=== PATIENT | male | born 1960 | race American Indian/Alaskan Native ===

== ENCOUNTER 2016-10-20 16:28 | Inpatient (IN) | payer BC ==
[~2016-10-20] VITALS: Ht 165.1 cm; Wt 79.7 kg
[2016-10-20 19:00] VITALS: BP 144/90; PULSE 60; RESP 20
[2016-10-20] MEDS ORDERED: HYDROCODONE/APAP (5/325) TAB PO PRN (19:30)
[2016-10-20] MEDS ORDERED: LEVOFLOXACIN 500MG/D5W (PMX) 100 ML IVPB SCH (19:30)
[2016-10-20] MEDS ORDERED: DIPHENHYDRAMINE 25 MG CAP PO PRN (19:30)
[2016-10-20] MEDS ORDERED: VANCOMYCIN IV PER PHARMACY XX SCH (19:30)
[2016-10-20 19:31] VITALS: BP 146/84; RESP 20
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
[2016-10-20 19:58] VITALS: Ht 165.1 cm; Wt 79.7 kg
[2016-10-20] MEDS ORDERED: CLOP75TA27 PO (20:02)
[2016-10-20] MEDS ORDERED: ATOR10TA65 PO (20:02)
[2016-10-20] MEDS ORDERED: HALO10TA PO (20:02)
[2016-10-20] MEDS ORDERED: CARV3.1260 PO (20:02)
[2016-10-20] MEDS ORDERED: ASPI-664 PO (20:02)
[2016-10-20] MEDS ORDERED: NITR0.4T6 SL (20:02)
[2016-10-20] MEDS ORDERED: [UNRECOGNIZED DRUG - CODE] PO (20:02)
[2016-10-20] MEDS ORDERED: ENAL5TAB PO (20:02)
--- NOTE | 2016-10-20 21:34 | RADRPT ---
PROCEDURE: US right lower extremity veins. CLINICAL INDICATION: Right leg pain and swelling. TECHNIQUE: Multiple longitudinal and transverse images of the right lower extremity veins were obt ained with bautista scale and color Doppler imaging. The common femoral vein, femoral vein, and poplitea l vein were evaluated. 2D grayscale measurements with compression sonography, pulsed Doppler, color Doppler, and pulsed Doppler with augmentation. COMPARISON: No prior studies are available for comparison. FINDINGS: The right common femoral, femoral and popliteal veins are normally compressible throughout. Color f low demonstrates normal filling of the vessels. Normal waveforms are visualized and there is normal response to augmentation. IMPRESSION: 1. No evidence of deep vein thrombosis involving the right lower extremity. RPTAT: QQ .Stephane Espinoza MD, MD Date Time Electronically viewed and signed by .Stephane Espinoza MD, on 10/20/2016 21:33 .R/
[2016-10-20] MEDS ORDERED: VANCOMYCIN 1.5 GM in SOD CHLORIDE 0.9% 250 ML IVPB SCH (22:00)
[2016-10-20] MEDS ORDERED: HALOPERIDOL 15 MG PO SCH (22:00)
[2016-10-20] MEDS: TRIHEXYPHENIDYL 5 MG TAB PO SCH (22:00)
[2016-10-20] MEDS ORDERED: NITROGLYCERIN (SL) 0.4 MG TAB SL PRN (22:00)
[2016-10-20] MEDS: HYDROCORTISONE 1% 28 GM CR TOP SCH (22:16)
[2016-10-20] MEDS: DOCUSATE SODIUM 100 MG CAP PO SCH (22:16)
[2016-10-20] MEDS: HALOPERIDOL 10 MG PO SCH (23:25)
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
[2016-10-21 05:53] LABS: ADD SCAN DIFF NO
[2016-10-21 05:56] LABS: ABNORMAL IP MESSAGE 1; HEMATOCRIT 42.5 % (42.0-52.0); HEMOGLOBIN 12.1 g/dl (14.0-18.0); MEAN CORPUSCULAR HEMOGLOBIN 19.3 pg (29.0-33.0); MEAN CORPUSCULAR HGB CONC 28.5 g/dl (32.0-37.0); MEAN CORPUSCULAR VOLUME 67.7 fl (82.0-101.0); MEAN PLATELET VOLUME 10.5 fl (7.4-10.4); PLATELET COUNT 185 10^3/UL (140-415); RED BLOOD COUNT 6.28 10^6/ul (4.70-6.10); RED CELL DISTRIBUTION WIDTH 17.8 % (11.5-14.5); WHITE BLOOD COUNT 9.5 10^3/ul (4.8-10.8)
[2016-10-21 06:06] LABS: INR 0.97; PROTIME 12.9 Sec (12.2-14.2)
[2016-10-21 06:10] LABS: ALBUMIN 3.2 g/dl (3.3-4.9); CHLORIDE 96 mmol/L (97-110)
[2016-10-21 06:11] LABS: POTASSIUM 4.1 mmol/L (3.5-5.1); SODIUM 137 mmol/L (135-144)
[2016-10-21 06:12] LABS: IRON 117 ug/dl (35-150)
[2016-10-21 06:13] LABS: ALKALINE PHOSPHATASE 59 IU/L (42-121); ANION GAP 10 (8-16); ASPARTATE AMINO TRANSFERASE 42 IU/L (15-46); BILIRUBIN,INDIRECT 0.3 mg/dl (0-1.1); BILIRUBIN,TOTAL 0.3 mg/dl (0.2-1.3); BLOOD UREA NITROGEN 4 mg/dl (7-20); CALCIUM 8.1 mg/dl (8.4-10.2); CARBON DIOXIDE 35 mmol/L (21-31); CHOLESTEROL 133 mg/dl (100-200); GLUCOSE 83 mg/dl (70-220); TOTAL PROTEIN 5.9 g/dl (6.1-8.1); TRIGLYCERIDES 81 mg/dl (0-149)
[2016-10-21 06:14] LABS: ALANINE AMINOTRANSFERASE 51 IU/L (13-69); CHOL/HDL RATIO 2.3 RATIO; HDL CHOLESTEROL 57 mg/dl (28-71); MAGNESIUM 1.8 mg/dl (1.7-2.5)
[2016-10-21 06:19] LABS: PARTIAL THROMBOPLASTIN TIME 28.6 Sec (25.0-35.0)
[2016-10-21 06:21] LABS: TOTAL IRON BINDING CAPACITY 287 ug/dl (241-421)
[2016-10-21 07:12] LABS: ADD UMIC NO; URINE BILIRUBIN (Dip) NEGATIVE (NEGATIVE); URINE BLOOD (Dip) NEGATIVE (NEGATIVE); URINE COLOR LT. YELLOW (YELLOW); URINE GLUCOSE (Dip) NEGATIVE (NEGATIVE); URINE KETONES (Dip) NEGATIVE (NEGATIVE); URINE LEUKOCYTE ESTERASE (Dip) NEGATIVE (NEGATIVE); URINE NITRITE (Dip) NEGATIVE (NEGATIVE); URINE TOTAL PROTEIN (Dip) NEGATIVE (NEGATIVE); URINE UROBILINOGEN (Dip) 0.2 E.U./dL (0.1-1.0)
[2016-10-21 07:54] VITALS: BP 122/80; RESP 18
[2016-10-21] MEDS ORDERED: FLUOCINONIDE 0.05%/EMOLL 15 GM CR TOP SCH ×2 (09:00)
[2016-10-21] MEDS: TRIHEXYPHENIDYL 5 MG TAB PO SCH ×2 (09:00→22:09)
--- NOTE | 2016-10-21 09:25 | RADRPT ---
PROCEDURE: XR right ankle. CLINICAL INDICATION: Ankle pain TECHNIQUE: Three views are available for review. COMPARISON: None available FINDINGS: There are old healed distal third tibial and fibular fractures There is a small posterior calcaneal spur. The osseous structures are otherwise normal mineralization, architecture and alignment. No fracture or osseous lesion is identified. The joints are unremarkable. The soft tissues are unremarkable. N o air is identified in the soft tissues. IMPRESSION: Small posterior calcaneal spur. No acute osseous abnormalities identified RPTAT: HGDB .Diego Ho MD, Date Time Electronically viewed and signed by .Diego Ho MD, on 10/21/2016 09:25 .B/
--- NOTE | 2016-10-21 09:28 | RADRPT ---
PROCEDURE: XR right foot. CLINICAL INDICATION: Foot pain /edema TECHNIQUE: Three views are available for review. COMPARISON: None available FINDINGS: There is a small posterior calcaneal spur. The osseous structures are otherwise normal in mineraliza tion, architecture and alignment. No fracture or osseous lesion this demonstrated. The joints are u nremarkable. The soft tissues are unremarkable. No air is identified in the soft tissues. IMPRESSION: Small posterior calcaneal spur. No acute osseous abnormalities identified RPTAT: HGDB .Diego Ho MD, Date Time Electronically viewed and signed by .Diego Ho MD, on 10/21/2016 09:27 .B/
[2016-10-21] MEDS: ENALAPRIL 5 MG TAB PO SCH (09:44)
[2016-10-21] MEDS: FAMOTIDINE 20 MG TAB PO SCH ×2 (09:44→21:53)
[2016-10-21] MEDS: CLOPIDOGREL 75 MG TAB PO SCH (09:44)
[2016-10-21] MEDS: ASPIRIN (EC) 81 MG TAB PO SCH (09:45)
[2016-10-21] MEDS: DOCUSATE SODIUM 100 MG CAP PO SCH ×2 (09:45→21:53)
[2016-10-21] MEDS: ENOXAPARIN 40 MG/0.4 ML SYG SC SCH (09:46)
[2016-10-21] MEDS: HYDROCORTISONE 1% 28 GM CR TOP SCH ×2 (09:46→22:04)
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
[2016-10-21 11:58] LABS: LYMPHOCYTES # 3.3 10^3/ul (0.8-2.9); MONOCYTE # 0.4 10^3/ul (0.3-0.9); NEUTROPHIL # 4.3 10^3/ul (1.6-7.5)
[2016-10-21 11:59] LABS: PLATELET ESTIMATE PLT APPEAR ADEQUATE
[2016-10-21] MEDS: VANCOMYCIN 1.25 GM in SOD CHLORIDE 0.9% 250 ML IVPB SCH (13:08)
[2016-10-21] MEDS: FLUOCINONIDE 0.05%/EMOLL 15 GM CR TOP SCH ×2 (13:09→22:04)
--- NOTE | 2016-10-21 17:49 | RADRPT ---
PROCEDURE: MRI OF THE RIGHT CALF/TIB FIB CLINICAL INDICATION: Possible osteomyelitis TECHNIQUE: Multiple MR pulse sequences in multiple planes were obtained. Images were interpreted on a high-resolution PACS system. COMPARISON: Radiographs from the same day FINDINGS: There is a healed post fracture form of the distal tibia and distal fibula. There is osseous bridgi ng noted between the tibia and fibula at the mid to proximal aspect of the lower extremity seen on t he axial sequence images 16. There are serpiginous foci of T2 hyperintensity noted at the tibia and fibula, similar appearance of the contralateral leg likely from prominent vasculature or benign vas cular malformations. No abnormal T1 bone marrow signal is seen or cortical destruction to suggest o steomyelitis at this time. There is mild, nonspecific subcutaneous edema noted in the lower extremity which could represent jennifer lulitis in the right clinical setting. There is marked skin thinning fossa extending to the cortex of the distal tibia seen on the axial sequence image 20 which could correlate to the patient's wound . No drainable fluid collections are identified. IMPRESSION: 1. Marked thinning of the medial aspect of the distal tibia with the skin seen near the cortical valdez rface of the tibia, possibly from the patient's wound. 2. No MR evidence for osteomyelitis or drainable fluid collection at this time. 3. Chronic bone changes, as above. RPTAT: VV .Tra Prater MD, MD Date Time Electronically viewed and signed by .Tra Prater MD, MD on 10/21/2016 17:49 .d/
[2016-10-21 19:00] VITALS: BP 140/76; RESP 18
[2016-10-21] MEDS: LEVOFLOXACIN 500MG/D5W (PMX) 100 ML IVPB SCH (21:52)
[2016-10-21] MEDS: ATORVASTATIN 10 MG TAB PO SCH (21:52)
[2016-10-21] MEDS: HALOPERIDOL 10 MG PO SCH (21:53)
[2016-10-22] MEDS: VANCOMYCIN 1.25 GM in SOD CHLORIDE 0.9% 250 ML IVPB SCH ×2 (00:18→13:58)
[2016-10-22 05:51] LABS: ADD SCAN DIFF NO
[2016-10-22 06:18] LABS: BASOPHIL # 0.1 10^3/ul (0.0-0.1); BASOPHILS % 1.1 % (0.0-2.0); EOSINOPHILS # 0.8 10^3/ul (0.0-0.5); EOSINOPHILS % 10.2 % (0.0-7.0); HEMATOCRIT 41.2 % (42.0-52.0); LYMPHOCYTES # 2.5 10^3/ul (0.8-2.9); LYMPHOCYTES % 29.8 % (15.0-51.0); MEAN CORPUSCULAR HEMOGLOBIN 19.5 pg (29.0-33.0); MEAN CORPUSCULAR HGB CONC 29.1 g/dl (32.0-37.0); MEAN CORPUSCULAR VOLUME 67.1 fl (82.0-101.0); MEAN PLATELET VOLUME 10.3 fl (7.4-10.4); MONOCYTE # 0.8 10^3/ul (0.3-0.9); MONOCYTES % 10.2 % (0.0-11.0); NEUTROPHIL # 3.9 10^3/ul (1.6-7.5); PLATELET COUNT 172 10^3/UL (140-415); RED BLOOD COUNT 6.14 10^6/ul (4.70-6.10); RED CELL DISTRIBUTION WIDTH 16.6 % (11.5-14.5); WHITE BLOOD COUNT 8.2 10^3/ul (4.8-10.8)
[2016-10-22 06:26] LABS: POTASSIUM 3.9 mmol/L (3.5-5.1)
[2016-10-22 06:29] LABS: CREATININE 0.61 mg/dl (0.61-1.24)
[2016-10-22 06:30] LABS: CALCIUM 8.3 mg/dl (8.4-10.2)
[2016-10-22 08:05] VITALS: BP 102/68; PULSE 82; RESP 20
[2016-10-22 08:06] VITALS: BP 102/68; RESP 16
[2016-10-22] MEDS: ENOXAPARIN 40 MG/0.4 ML SYG SC SCH (10:06)
[2016-10-22] MEDS: CLOPIDOGREL 75 MG TAB PO SCH (10:07)
[2016-10-22] MEDS: ENALAPRIL 5 MG TAB PO SCH (10:08)
[2016-10-22] MEDS: ASPIRIN (EC) 81 MG TAB PO SCH (10:08)
[2016-10-22] MEDS: DOCUSATE SODIUM 100 MG CAP PO SCH ×2 (10:08→20:20)
[2016-10-22] MEDS: FLUOCINONIDE 0.05%/EMOLL 15 GM CR TOP SCH ×3 (10:09→20:22)
[2016-10-22] MEDS: HYDROCORTISONE 1% 28 GM CR TOP SCH ×2 (10:09→20:22)
[2016-10-22] MEDS: FAMOTIDINE 20 MG TAB PO SCH ×2 (10:10→20:21)
[2016-10-22] MEDS: TRIHEXYPHENIDYL 5 MG TAB PO SCH ×2 (10:13→20:20)
[2016-10-22 10:16] VITALS: BP 140/83; PULSE 66
--- NOTE | 2016-10-22 11:53 | CONS ---
Date/Time of Note Date/Time of Note DATE: 10/22/16 TIME: 11:52 Assessment/Plan Assessment/Plan Additional Assessment/Plan CONT. current abx. full note to follow Consultation Date/Type/Reason Admit Date/Time Oct 20, 2016 at 18:54 Initial Consult Date Type of Consultation: ID Referring Provider: IFEOMA ESCOTO Exam/Review of Systems Vital Signs Vitals Vital Signs Date Time Temp Pulse Resp B/P Pulse Ox O2 Delivery O2 Flow Rate FiO2 10/22/16 10:16 66 140/83 10/22/16 08:06 98.3 16 90 10/22/16 08:05 Nasal Cannula 2.0 Intake and Output 10/21/16 10/21/16 10/22/16 15:00 23:00 07:00 Intake Total 1170 ml 1550 ml Output Total 750 ml 1075 ml Balance 420 ml 475 ml Results Result Diagram: 10/22/16 0528 10/22/16 0528 Results 24 hrs Laboratory Tests Test 10/22/16 05:28 Anion Gap 9 Basophils # 0.1 Basophils % 1.1 Blood Urea Nitrogen 4 L Calcium Level 8.3 L Carbon Dioxide Level 36 H Chloride Level 96 L Creatinine 0.61 Eosinophils # 0.8 H Eosinophils % 10.2 H Glucose Level 85 Hematocrit 41.2 L Hemoglobin 12.0 L Lymphocytes # 2.5 Lymphocytes % 29.8 Mean Corpuscular Hemoglobin 19.5 L Mean Corpuscular Hemoglobin Concent 29.1 L Mean Corpuscular Volume 67.1 L Mean Platelet Volume 10.3 Monocytes # 0.8 Monocytes % 10.2 Neutrophils # 3.9 Neutrophils % 48.0 Nucleated Red Blood Cells # 0.0 Nucleated Red Blood Cells % 0.0 Platelet Count 172 Potassium Level 3.9 Red Blood Count 6.14 H Red Cell Distribution Width 16.6 H Sodium Level 137 White Blood Count 8.2 Medications Medications Current Medications Acetaminophen/ Hydrocodone Bitart ([place] (5/325)) 1 tab Q6H PRN PO pain; Start 10/20/16 at 19:30 Docusate Sodium (Colace) 100 mg BID PO Last administered on 10/22/16t 10:08; Admin Dose 100 MG; Start 10/20/16 at 21:00 Diphenhydramine HCl (Benadryl) 25 mg Q6H PRN PO ITCHING; Start 10/20/16 at 19: 30 Hydrocortisone (Hydrocortisone 1% Cr) 1 applic BID TOP Last administered on 10:09; Admin Dose 1 APPLIC; Start 10/20/16 at 21:00 Aspirin (Halfprin) 81 mg DAILY PO Last administered on 10/22/16 10:08; Admin Dose 81 MG; Start 10/21/16 at 09:00 Atorvastatin Calcium (Lipitor) 10 mg QHS PO Last administered on 10/21/16 21: 52; Admin Dose 10 MG; Start 10/21/16 at 21:00 Carvedilol (Coreg) 3.125 mg BID PO Last administered on 10/22/16 10:08; Admin Dose 3.125 MG; Start 10/20/16 at 22:00 Clopidogrel Bisulfate (plaVIX) 75 mg DAILY PO Last administered on 10/22/16 10 :07; Admin Dose 75 MG; Start 10/21/16 at 09:00 Enalapril Maleate (Vasotec) 5 mg DAILY PO Last administered on 10/22/16 10:08 ; Admin Dose 5 MG; Start 10/21/16 at 09:00 Nitroglycerin (Nitroglycerin (Sl Tab) 0.4 Mg) 1 tab [id number] PRN SL CHEST PAIN ; Start 10/20/16 at 22:00 Trihexyphenidyl HCl (Artane) 5 mg BID PO Last administered on 10/22/16 10:13; Admin Dose 5 MG; Start 10/20/16 at 22:00 Enoxaparin Sodium (Lovenox) 40 mg DAILY SC Last administered on 10/22/16 10:06 ; Admin Dose 40 MG; Start 10/21/16 at 09:00 Famotidine (Pepcid) 20 mg BID PO Last administered on 10/22/16 10:10; Admin Dose 20 MG; Start 10/21/16 at 09:00 Non-Formulary Medication 1.5 ea QHS PO Last administered on 10/21/16 21:53; Admin Dose 1.5 EA; Start 10/20/16 at 23:00 Fluocinonide 1 applic 1 applic TID TOP Last administered on 10/22/16 10:09; Admin Dose 1 APPLIC; Start 10/21/16 at 09:53 Levofloxacin/ Dextrose 100 ml @ 100 mls/hr Q24H IVPB Last administered on 10/21 21:52; Admin Dose 100 MLS/HR; Start 10/21/16 at 19:30 Vancomycin HCl/ Sodium Chloride (Vancocin/NS) 250 ml @ 83.333 mls/ hr Q12H IVPB Last administered on 10/22/16 00:18; Admin Dose 83.333 MLS/HR; Start at 12:00 MATHEW BLEVINS MD Oct 22, 2016 11:53
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
[2016-10-22] MEDS: ALBUTEROL/IPRATROPIUM (NEB) 3 ML AMP HHN PRN ×2 (15:25→23:26)
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
[2016-10-22 19:00] VITALS: BP 106/81; RESP 20
--- NOTE | 2016-10-22 19:16 | RADRPT ---
PROCEDURE: XR Chest. CLINICAL INDICATION: Shortness of breath. Preoperative. TECHNIQUE: Single frontal view. COMPARISON: None. FINDINGS: There is mild atelectasis at the lung bases. The lungs are otherwise clear. The heart size is normal. There is no pleural effusion. There is no pneumothorax. IMPRESSION: 1. Mild atelectasis at the lung bases. 2. Otherwise normal chest x-ray. RPTAT: QQ .Stephane Espinoza MD, MD Date Time Electronically viewed and signed by .Stephane Espinoza MD, on 10/22/2016 19:15 .R/
[2016-10-22] MEDS: LEVOFLOXACIN 500MG/D5W (PMX) 100 ML IVPB SCH (20:19)
[2016-10-22] MEDS: HALOPERIDOL 10 MG PO SCH (20:21)
[2016-10-22] MEDS: ATORVASTATIN 10 MG TAB PO SCH (20:21)
[2016-10-22] MEDS: VANCOMYCIN 1.5 GM in SOD CHLORIDE 0.9% 250 ML IVPB SCH (22:47)
[2016-10-23] VITALS (11 sets, daily range): BP systolic 108–141; BP diastolic 62–91; PULSE 84–94; RESP 12–22
[2016-10-23] MEDS ORDERED: DIPHENHYDRAMINE 50 MG INJ IV PRN (01:30)
--- NOTE | 2016-10-23 05:36 | CONS ---
DATE OF ADMISSION: 10/20/2016 DATE OF CONSULTATION: 10/22/2016 SUBJECTIVE FINDINGS: The patient being followed for right ankle cellulitis, swelling is scheduled f or biopsy tomorrow. No changes in health. The patient has a persistent rash to the right medial an kle. OBJECTIVE FINDINGS: Labs. PHYSICAL EXAMINATION: VITAL SIGNS: Temperature 97.1, pulse 85, respiratory rate 20, blood pressure 106/81, pulse oximetry is 93 on room air. EXTREMITIES: The patient with a rash at right medial ankle. There is an indentation of the skin an terior medial ankle with scarring, erythema persists. The patient has a 2+ DP, PT pulse. MRI marked thinning of the medial aspect of the distal tibia. No evidence of osteomyelitis or drain able fluid. X-rays of the ankle old distal tibial and fibular fractures. LABORATORIES: WBC 8.2, hemoglobin 12, hematocrit 41.2, platelets 172. Sodium 137, potassium 3.9, c hloride 96, BUN 4, creatinine 0.61. ASSESSMENT: 1. Right lower extremity with cellulitis. No radiographic signs of osteomyelitis. 2. Generalized skin rash. 3. Chronic schizophrenic. 4. Coronary artery disease, status post stent. 5. Chronic tobacco abuse. 6. Hypertension. 7. Hyperlipidemia. PLAN: I discussed with the patient reviewed x-rays and MRI. The patient with some improvement with topical steroids. Recommend biopsy of skin. The patient is scheduled and obtained consent and the patient n.p.o. past midnight. I discussed with Dr. Daniels. The patient currently on vancomycin and Levaquin. Dictated By: JAY MCMAHON/COLEMAN Conf#: [id number] DID#: [id number]
[2016-10-23 06:05] LABS: ADD SCAN DIFF NO
[2016-10-23 06:09] LABS: BASOPHIL # 0.1 10^3/ul (0.0-0.1); BASOPHILS % 0.9 % (0.0-2.0); EOSINOPHILS # 0.9 10^3/ul (0.0-0.5); EOSINOPHILS % 9.5 % (0.0-7.0); HEMATOCRIT 40.2 % (42.0-52.0); HEMOGLOBIN 11.7 g/dl (14.0-18.0); LYMPHOCYTES # 2.8 10^3/ul (0.8-2.9); LYMPHOCYTES % 31.3 % (15.0-51.0); MEAN CORPUSCULAR HEMOGLOBIN 19.3 pg (29.0-33.0); MEAN CORPUSCULAR HGB CONC 29.1 g/dl (32.0-37.0); MEAN CORPUSCULAR VOLUME 66.2 fl (82.0-101.0); MEAN PLATELET VOLUME 10.4 fl (7.4-10.4); MONOCYTE # 0.9 10^3/ul (0.3-0.9); MONOCYTES % 9.9 % (0.0-11.0); NEUTROPHIL # 4.3 10^3/ul (1.6-7.5); NEUTROPHILS % 47.8 % (39.0-77.0); PLATELET COUNT 180 10^3/UL (140-415); RED BLOOD COUNT 6.07 10^6/ul (4.70-6.10); RED CELL DISTRIBUTION WIDTH 16.4 % (11.5-14.5); WHITE BLOOD COUNT 8.9 10^3/ul (4.8-10.8)
[2016-10-23 06:26] LABS: POTASSIUM 3.7 mmol/L (3.5-5.1)
[2016-10-23 06:29] LABS: CREATININE 0.65 mg/dl (0.61-1.24); PROTIME 13.2 Sec (12.2-14.2)
[2016-10-23 06:30] LABS: CALCIUM 8.4 mg/dl (8.4-10.2)
--- NOTE | 2016-10-23 08:21 | RADRPT ---
Vent Rate: 78 bpm RR Interval: 0 msec DC Interval: 146 msec QRS Duration: 90 msec QT Interval: 378 msec QTC Interval: 430 msec P-R-T [place]: 47 - 38 - 41 degrees Normal sinus rhythm Nonspecific T wave abnormality Abnormal ECG Electronically Signed By: Magdaleno Donaldson [id number]
[2016-10-23] MEDS: DOCUSATE SODIUM 100 MG CAP PO SCH ×2 (08:40→21:13)
[2016-10-23] MEDS: TRIHEXYPHENIDYL 5 MG TAB PO SCH ×2 (08:40→21:13)
[2016-10-23] MEDS: CLOPIDOGREL 75 MG TAB PO SCH (08:41)
[2016-10-23] MEDS: FAMOTIDINE 20 MG TAB PO SCH ×2 (08:41→21:13)
[2016-10-23] MEDS: ASPIRIN (EC) 81 MG TAB PO SCH (08:41)
[2016-10-23] MEDS: ENALAPRIL 5 MG TAB PO SCH (08:41)
[2016-10-23] MEDS: ENOXAPARIN 40 MG/0.4 ML SYG SC SCH (08:42)
[2016-10-23] MEDS: FLUOCINONIDE 0.05%/EMOLL 15 GM CR TOP SCH ×3 (09:07→21:00)
[2016-10-23] MEDS: METHYLPREDNISOLONE 125 MG INJ IV SCH ×2 (09:07→21:12)
[2016-10-23] MEDS: TRIAMCINOLONE ACET 0.1% 60 ML LOT TOP SCH ×3 (09:07→21:13)
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
[2016-10-23] MEDS: VANCOMYCIN 1.5 GM in SOD CHLORIDE 0.9% 250 ML IVPB SCH ×2 (11:58→23:39)
--- NOTE | 2016-10-23 15:25 | PN ---
Date/Time of Note Date/Time of Note DATE: 10/23/16 TIME: 15:23 Assessment/Plan VTE Prophylaxis VTE Prophylaxis Intervention: heparin Lines/Catheters IV [facility] Saline Lock Urinary Cath still in place: No Assessment/Plan Assessment/Plan I. Chronic R LE wound from [facility] 30yrs ago with recurrent cellulitis s/p failed outpt treatment, rule out osteomyelitis 2. Generalized skin rash 3. Chronic schizophrenia 4. CAD s/p stent 5. Chronic tobacco abuse 6. HTN 7. Dyslipidemia PLAN: * obtain wound cultures / empiric abx / podiatry and ID consults / MRI LE , ID on the case, podiatry planning for biopsy of wound today * Topical steroids for skin rash * LE duplex negative for DVT * Continue home meds for HTN and schizophrenia PROPHYLAXIS: heparin / pepcid Subjective 24 Hr Interval Summary Free Text/Dictation c/o right leg pain, plan for bx of leg by Podiatry Exam/Review of Systems Vital Signs Vitals Vital Signs Date Time Temp Pulse Resp B/P Pulse Ox O2 Delivery O2 Flow Rate FiO2 10/23/16 07:26 97.4 74 22 119/83 90 10/23/16 01:06 2.0 10/22/16 23:26 Nasal Cannula Intake and Output 10/22/16 10/22/16 10/23/16 15:00 23:00 07:00 Intake Total 1910 ml 1690 ml Output Total 960 ml 2250 ml Balance 950 ml -560 ml Exam kuwaiti speaking only Constitutional: alert, oriented, well developed Respiratory: clear to auscultation, normal air movement Cardiovascular: nl pulses, regular rate and rhythm Gastrointestinal: nl liver, spleen, non-tender, soft Musculoskeletal: other (r leg with chronic appear induration, scaling and some serosang drainage. lichen like, 7x5 cm area) Results Result Diagram: 10/23/16 0515 10/23/16 0535 Results 24 hrs Laboratory Tests Test 10/23/16 05:15 10/23/16 05:35 10/23/16 12:05 White Blood Count 8.9 Red Blood Count 6.07 Hemoglobin 11.7 L Hematocrit 40.2 L Mean Corpuscular Volume 66.2 L Mean Corpuscular Hemoglobin 19.3 L Mean Corpuscular Hemoglobin Concent 29.1 L Red Cell Distribution Width 16.4 H Platelet Count 180 Mean Platelet Volume 10.4 Neutrophils % 47.8 Lymphocytes % 31.3 Monocytes % 9.9 Eosinophils % 9.5 H Basophils % 0.9 Nucleated Red Blood Cells % 0.0 Neutrophils # 4.3 Lymphocytes # 2.8 Monocytes # 0.9 Eosinophils # 0.9 H Basophils # 0.1 Nucleated Red Blood Cells # 0.0 Prothrombin Time 13.2 Prothrombin Time Ratio 1.0 INR International Normalized Ratio 1.00 Activated Partial Thromboplast Time 29.0 Sodium Level 137 Potassium Level 3.7 Chloride Level 96 L Carbon Dioxide Level 35 H Anion Gap 10 Blood Urea Nitrogen 5 L Creatinine 0.65 Glucose Level 79 Calcium Level 8.4 Erythrocyte Sedimentation Rate 4 Lactic Acid Level 1.4 HIV (1&2) Antibody NEGATIVE Medications Medications Current Medications Acetaminophen/ Hydrocodone Bitart ([place] (5/325)) 1 tab Q6H PRN PO pain; Start 10/20/16 at 19:30 Docusate Sodium (Colace) 100 mg BID PO Last administered on 10/22/16 20:20; Admin Dose 100 MG; Start 10/20/16 at 21:00 Diphenhydramine HCl (Benadryl) 25 mg Q6H PRN PO ITCHING Last administered on 20:26; Admin Dose 25 MG; Start 10/20/16 at 19:30 Aspirin (Halfprin) 81 mg DAILY PO Last administered on 10/22/16 10:08; Admin Dose 81 MG; Start 10/21/16 at 09:00 Atorvastatin Calcium (Lipitor) 10 mg QHS PO Last administered on 10/22/16 20: 21; Admin Dose 10 MG; Start 10/21/16 at 21:00 Carvedilol (Coreg) 3.125 mg BID PO Last administered on 10/22/16 20:21; Admin Dose 3.125 MG; Start 10/20/16 at 22:00 Clopidogrel Bisulfate (plaVIX) 75 mg DAILY PO Last administered on 10/22/16 10 :07; Admin Dose 75 MG; Start 10/21/16 at 09:00 Enalapril Maleate (Vasotec) 5 mg DAILY PO Last administered on 10/22/16 10:08 ; Admin Dose 5 MG; Start 10/21/16 at 09:00 Nitroglycerin (Nitroglycerin (Sl Tab) 0.4 Mg) 1 tab [id number] PRN SL CHEST PAIN ; Start 10/20/16 at 22:00 Trihexyphenidyl HCl (Artane) 5 mg BID PO Last administered on 10/22/16 20:20; Admin Dose 5 MG; Start 10/20/16 at 22:00 Enoxaparin Sodium (Lovenox) 40 mg DAILY SC Last administered on 10/22/16 10:06 ; Admin Dose 40 MG; Start 10/21/16 at 09:00 Famotidine (Pepcid) 20 mg BID PO Last administered on 10/22/16 20:21; Admin Dose 20 MG; Start 10/21/16 at 09:00 Non-Formulary Medication 1.5 ea QHS PO Last administered on 10/22/16 20:21; Admin Dose 1.5 EA; Start 10/20/16 at 23:00 Fluocinonide 1 applic 1 applic TID TOP Last administered on 10/23/16 13:08; Admin Dose 1 APPLIC; Start 10/21/16 at 09:53 Levofloxacin/ Dextrose 100 ml @ 100 mls/hr Q24H IVPB Last administered on 10/22 20:19; Admin Dose 100 MLS/HR; Start 10/21/16 at 19:30 Vancomycin HCl/ Sodium Chloride (Vancocin/NS) 250 ml @ 83.333 mls/ hr Q12H IVPB Last administered on 10/23/16 11:58; Admin Dose 83.333 MLS/HR; Start at 23:00 Diphenhydramine HCl (Benadryl) 50 mg Q4H PRN IV ITCHING Last administered on 01:36; Admin Dose 50 MG; Start 10/23/16 at 01:30 Triamcinolone (Kenalog 0.1% Lotion) 1 applic TID TOP Last administered on 13:08; Admin Dose 1 APPLIC; Start 10/23/16 at 09:00 Methylprednisolone Sodium Succinate (Solu-Medrol) 125 mg Q12 IV Last administered on 10/23/16 09:07; Admin Dose 125 MG; Start 10/23/16 at 09:00 CHRISTO CHASE MD Oct 23, 2016 15:25
[2016-10-23] MEDS ORDERED: LIDOCAINE 2% (SDV) 5 ML INJ ONE (18:23)
[2016-10-23] MEDS ORDERED: PROPOFOL 20 ML ONE (18:23)
[2016-10-23] MEDS ORDERED: MIDAZOLAM 1 MG/ML 2 ML INJ ONE (18:24)
[2016-10-23] MEDS ORDERED: LIDOCAINE 1% (MDV) 20 ML INJ ONE (18:29)
[2016-10-23] MEDS ORDERED: PHENYLephrine (100 MCG/ML) 5ML SYG ONE (18:43)
--- NOTE | 2016-10-23 18:55 | OPR ---
Date/Time of Note Date/Time of Note DATE: 10/23/16 TIME: 18:52 Operative Report Free Text/Dictation Right ankle cellulitis Severe ezcema H/o open wound right ankle Procedure Date: Oct 23, 2016 Preoperative Diagnosis Right ankle cellulitis. Severe ezcema. h/o open wound from trauma. Postoperative Diagnosis same Operation Performed Right ankle incisional biopsy skin/ subcutaneous tissue Surgeon: JAY DELVALLE DPM Anesthesia: MAC Anesthesiologist: DEB MURRY MD Estimated Blood Loss: minimal Specimens tissue biopsy x 2. Tissue cx right ankle Tubes/Drains none Complications: None Pt Condition Post Procedure: stable Operative\Procedure Findings right ankle biopsy skin x 2. JAY DELVALLE DPM Oct 23, 2016 18:55
[2016-10-23] MEDS ORDERED: PROCHLORPERAZINE 10 MG INJ IV PRN (19:00)
[2016-10-23] MEDS ORDERED: ONDANSETRON 4 MG INJ IV PRN (19:00)
[2016-10-23] MEDS ORDERED: FENTAnyl 50 MCG/ML VIAL IV PRN (19:00)
[2016-10-23] MEDS ORDERED: HYDROmorphONE (0.2 MG/ML) 10ML SYG IV PRN (19:00)
--- NOTE | 2016-10-23 19:27 | OPR ---
DATE OF OPERATION: 10/23/2016 SURGEON: Jay Villanueva DPM SPECIALTY SALES REPRESENTATIVE: None. PREOPERATIVE DIAGNOSES: 1. Right ankle cellulitis. 2. Severe eczema right medial ankle. 3. History of tib-fib fracture. POSTOPERATIVE DIAGNOSES: 1. Right ankle cellulitis. 2. Severe eczema right medial ankle. 3. History of tib-fib fracture. OPERATION PERFORMED: Incisional biopsy of right medial ankle skin and subcutaneous tissue. PATHOLOGY: Two punch biopsies and tissue for culture. ANESTHESIA: MAC, lidocaine 1% plain. ESTIMATED BLOOD LOSS: 20 mL. MATERIALS: None. COMPLICATIONS: None. INDICATION FOR PROCEDURE: A 56-year-old male with admission to the hospital for severe cellulitis, had failed outpatient treatment. The patient had been on antibiotics with persistent erythema. At this time the patient presents for an incisional biopsy. Consent was obtained through a family memb er. PROCEDURE IN DETAIL: The patient brought into the operating room and placed in the supine position. Formal timeout was performed. The foot was marked, confirmed by the surgical team, and prepped an d draped in usual sterile fashion. The patient had been on perioperative antibiotics and at this [facility], using a punch biopsy, 3 incisional biopsies were performed at multiple locations of the right me dial ankle. Specimen was obtained for culture and for aerobic, anaerobic, and fungal. The incision al biopsy sites were closed primarily with 3-0 nylon in simple interrupted fashion. The patient had an injection with lidocaine 1% to the incisional sites. The patient tolerated the procedure well a nd was wrapped with Xeroform, 4 x 4, Kerlix, Webril, and bias. The patient was transferred to PACU with vital signs stable. POSTOPERATIVE PLAN: Further disposition per primary team. Further recommendations awaiting patholo gy and culture results. Can resume dressing changes tomorrow. Dictated By: JAY MCMAHON/COLEMAN Conf#: [id number] DID#: [id number]
[2016-10-23] MEDS: HALOPERIDOL 10 MG PO SCH (21:12)
[2016-10-23] MEDS: LEVOFLOXACIN 500MG/D5W (PMX) 100 ML IVPB SCH (21:12)
[2016-10-23] MEDS: ATORVASTATIN 10 MG TAB PO SCH (21:13)
[2016-10-23] MEDS: ALBUTEROL/IPRATROPIUM (NEB) 3 ML AMP HHN PRN (22:42)
[2016-10-24 07:32] VITALS: BP 120/69; RESP 19
[2016-10-24] MEDS ORDERED: BISACODYL 10 MG SUPP PR PRN (09:00)
[2016-10-24] MEDS: ASPIRIN (EC) 81 MG TAB PO SCH (09:05)
[2016-10-24] MEDS: DOCUSATE SODIUM 100 MG CAP PO SCH ×2 (09:05→21:07)
[2016-10-24] MEDS: METHYLPREDNISOLONE 125 MG INJ IV SCH ×2 (09:05→21:07)
[2016-10-24] MEDS: FAMOTIDINE 20 MG TAB PO SCH ×2 (09:05→21:07)
[2016-10-24] MEDS: TRIHEXYPHENIDYL 5 MG TAB PO SCH ×2 (09:05→21:07)
[2016-10-24] MEDS: TRIAMCINOLONE ACET 0.1% 60 ML LOT TOP SCH ×3 (09:06→21:08)
[2016-10-24] MEDS: ENALAPRIL 5 MG TAB PO SCH (09:06)
[2016-10-24] MEDS: FLUOCINONIDE 0.05%/EMOLL 15 GM CR TOP SCH ×3 (09:06→21:08)
[2016-10-24] MEDS: CLOPIDOGREL 75 MG TAB PO SCH (09:06)
[2016-10-24] MEDS: ENOXAPARIN 40 MG/0.4 ML SYG SC SCH (09:16)
[2016-10-24] MEDS: VANCOMYCIN 1.5 GM in SOD CHLORIDE 0.9% 250 ML IVPB SCH ×2 (12:55→23:00)
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
--- NOTE | 2016-10-24 18:42 | PN ---
Date/Time of Note Date/Time of Note DATE: 10/24/16 TIME: 18:41 Assessment/Plan VTE Prophylaxis VTE Prophylaxis Intervention: heparin Lines/Catheters IV [facility] Type (from [facility] Saline Lock Urinary Cath still in place: No Assessment/Plan Assessment/Plan I. Chronic R LE wound from [facility] 30yrs ago with recurrent cellulitis s/p failed outpt treatment, s/p Incisional biopsy of right medial ankle skin and subcutaneous tissue by podiatry . woudn cx gram stain negative, TB gold ,C/o pain in foot 2. Generalized skin rash 3. Chronic schizophrenia 4. CAD s/p stent 5. Chronic tobacco abuse 6. HTN 7. Dyslipidemia PLAN: * os/p Incisional biopsy of right medial ankle skin and subcutaneous tissue. woudn cx gram stain negative, TB gold ,C/o pain in foot , wound cx pending , IV abx, ID followin g * Topical steroids for skin rash * LE duplex negative for DVT * Continue home meds for HTN and schizophrenia PROPHYLAXIS: heparin / pepcid Subjective 24 Hr Interval Summary Free Text/Dictation s/p Incisional biopsy of right medial ankle skin and subcutaneous tissue. woudn cx gram stain negative, TB gold ,C/o pain in foot Exam/Review of Systems Vital Signs Vitals Vital Signs Date Time Temp Pulse Resp B/P Pulse Ox O2 Delivery O2 Flow Rate FiO2 10/24/16 18:20 2.0 10/24/16 14:24 Nasal Cannula 10/24/16 07:32 97.7 86 19 120/69 90 10/23/16 22:42 21 Intake and Output 10/23/16 10/23/16 10/24/16 15:00 23:00 07:00 Intake Total 450 ml 550 ml Output Total 5 ml 400 ml Balance 445 ml 150 ml Exam czech speaking only Constitutional: alert, oriented, well developed Respiratory: clear to auscultation, normal air movement Cardiovascular: nl pulses, regular rate and rhythm Gastrointestinal: nl liver, spleen, non-tender, soft Musculoskeletal: other (r leg with chronic appear induration, scaling and some serosang drainage. lichen like, 7x5 cm area) Results Result Diagram: 10/23/16 0515 10/23/16 0535 Medications Medications Current Medications Acetaminophen/ Hydrocodone Bitart ([place] (5/325)) 1 tab Q6H PRN PO pain; Start 3/19/17 at 19:30 Docusate Sodium (Colace) 100 mg BID PO Last administered on 10/24/16 09:05; Admin Dose 100 MG; Start 10/20/16 at 21:00 Diphenhydramine HCl (Benadryl) 25 mg Q6H PRN PO ITCHING Last administered on 20:26; Admin Dose 25 MG; Start 10/20/16 at 19:30 Aspirin (Halfprin) 81 mg DAILY PO Last administered on 10/24/16 09:05; Admin Dose 81 MG; Start 10/21/16 at 09:00 Atorvastatin Calcium (Lipitor) 10 mg QHS PO Last administered on 10/23/16 21: 13; Admin Dose 10 MG; Start 10/21/16 at 21:00 Carvedilol (Coreg) 3.125 mg BID PO Last administered on 10/24/16 09:06; Admin Dose 3.125 MG; Start 10/20/16 at 22:00 Clopidogrel Bisulfate (plaVIX) 75 mg DAILY PO Last administered on 10/24/16 09 :06; Admin Dose 75 MG; Start 10/21/16 at 09:00 Enalapril Maleate (Vasotec) 5 mg DAILY PO Last administered on 10/24/16 09:06 ; Admin Dose 5 MG; Start 10/21/16 at 09:00 Nitroglycerin (Nitroglycerin (Sl Tab) 0.4 Mg) 1 tab [id number] PRN SL CHEST PAIN ; Start 10/20/16 at 22:00 Trihexyphenidyl HCl (Artane) 5 mg BID PO Last administered on 10/24/16 09:05; Admin Dose 5 MG; Start 10/20/16 at 22:00 Enoxaparin Sodium (Lovenox) 40 mg DAILY SC Last administered on 10/24/16 09:16 ; Admin Dose 40 MG; Start 10/21/16 at 09:00 Famotidine (Pepcid) 20 mg BID PO Last administered on 10/24/16 09:05; Admin Dose 20 MG; Start 10/21/16 at 09:00 Non-Formulary Medication 1.5 ea QHS PO Last administered on 10/23/16 21:12; Admin Dose 1.5 EA; Start 10/20/16 at 23:00 Fluocinonide 1 applic 1 applic TID TOP Last administered on 10/24/16 12:56; Admin Dose 1 APPLIC; Start 10/21/16 at 09:53 Levofloxacin/ Dextrose 100 ml @ 100 mls/hr Q24H IVPB Last administered on 10/23 21:12; Admin Dose 100 MLS/HR; Start 10/21/16 at 19:30 Vancomycin HCl/ Sodium Chloride (Vancocin/NS) 250 ml @ 83.333 mls/ hr Q12H IVPB Last administered on 10/24/16 12:55; Admin Dose 83.333 MLS/HR; Start at 23:00 Diphenhydramine HCl (Benadryl) 50 mg Q4H PRN IV ITCHING Last administered on 01:36; Admin Dose 50 MG; Start 10/23/16 at 01:30 Triamcinolone (Kenalog 0.1% Lotion) 1 applic TID TOP Last administered on 12:56; Admin Dose 1 APPLIC; Start 10/23/16 at 09:00 Methylprednisolone Sodium Succinate (Solu-Medrol) 125 mg Q12 IV Last administered on 10/24/16 09:05; Admin Dose 125 MG; Start 10/23/16 at 09:00 Bisacodyl (Dulcolax Supp) 10 mg DAILY PRN [place] CONSTIPATION; Start 10/24/16 at 09 :00 Miscellaneous Information (*Rx Drug Level Order Reminder*) VANCOMYCIN TROUGH AT 2200 ONCE ONCE XX ; Start 10/24/16 at 22:00; Stop 10/24/16 at 22:01 CHRISTO CHASE MD Oct 24, 2016 18:42
[2016-10-24 20:15] VITALS: BP 139/86; RESP 18
[2016-10-24] MEDS: HALOPERIDOL 10 MG PO SCH (21:00)
[2016-10-24] MEDS: ATORVASTATIN 10 MG TAB PO SCH (21:07)
[2016-10-24] MEDS: LEVOFLOXACIN 500MG/D5W (PMX) 100 ML IVPB SCH (21:07)
[2016-10-25 07:00] VITALS: BP 143/85; RESP 20
[2016-10-25] MEDS: METHYLPREDNISOLONE 125 MG INJ IV SCH ×2 (08:58→22:14)
[2016-10-25] MEDS: TRIHEXYPHENIDYL 5 MG TAB PO SCH ×2 (08:59→22:13)
[2016-10-25] MEDS: ASPIRIN (EC) 81 MG TAB PO SCH (09:00)
[2016-10-25] MEDS: DOCUSATE SODIUM 100 MG CAP PO SCH ×2 (09:00→22:12)
[2016-10-25] MEDS: CLOPIDOGREL 75 MG TAB PO SCH (09:01)
[2016-10-25] MEDS: FAMOTIDINE 20 MG TAB PO SCH ×2 (09:01→22:13)
[2016-10-25] MEDS: ENALAPRIL 5 MG TAB PO SCH (09:02)
[2016-10-25] MEDS: FLUOCINONIDE 0.05%/EMOLL 15 GM CR TOP SCH ×3 (09:08→22:21)
[2016-10-25] MEDS: TRIAMCINOLONE ACET 0.1% 60 ML LOT TOP SCH ×3 (09:08→22:21)
[2016-10-25] MEDS: ENOXAPARIN 40 MG/0.4 ML SYG SC SCH (09:15)
--- NOTE | 2016-10-25 12:23 | PN ---
Date/Time of Note Date/Time of Note DATE: 10/25/16 TIME: 12:20 Assessment/Plan VTE Prophylaxis VTE Prophylaxis Intervention: heparin Lines/Catheters [facility] Saline Lock Urinary Cath still in place: No Assessment/Plan Assessment/Plan I. Chronic R LE wound from [facility] 30yrs ago with recurrent cellulitis s/p failed outpt treatment, s/p Incisional biopsy of right medial ankle skin and subcutaneous tissue by podiatry . woudn cx gram stain negative, TB gold ,C/o pain in foot 2. Generalized skin rash 3. Chronic schizophrenia 4. CAD s/p stent 5. Chronic tobacco abuse 6. HTN 7. Dyslipidemia PLAN: * os/p Incisional biopsy of right medial ankle skin and subcutaneous tissue. woudn cx gram stain negative, TB gold ,C/o pain in foot , wound cx pending , IV abx, ID followin g * Topical steroids for skin rash * LE duplex negative for DVT * Continue home meds for HTN and schizophrenia PROPHYLAXIS: heparin / pepcid Subjective 24 Hr Interval Summary Free Text/Dictation s/p Biopsy, c/o pain in leg Exam/Review of Systems Vital Signs Vitals Vital Signs Date Time Temp Pulse Resp B/P Pulse Ox O2 Delivery O2 Flow Rate FiO2 10/25/16 07:00 98.6 73 20 143/85 90 10/25/16 07:00 Nasal Cannula 2.0 10/23/16 22:42 21 Intake and Output 10/24/16 10/24/16 10/25/16 15:00 23:00 07:00 Intake Total 1790 ml 800 ml Output Total 1600 ml 1200 ml Balance 190 ml -400 ml Exam ghanaian speaking only Constitutional: alert, oriented, well developed Respiratory: clear to auscultation, normal air movement Cardiovascular: nl pulses, regular rate and rhythm Gastrointestinal: nl liver, spleen, non-tender, soft Musculoskeletal: other (r leg with chronic appear induration, scaling and some serosang drainage. lichen like, 7x5 cm area) Results Result Diagram: 10/23/16 0515 10/23/16 0535 Results 24 hrs Laboratory Tests Test 10/24/16 22:00 Vancomycin Level Trough 19.4 Medications Medications Current Medications Acetaminophen/ Hydrocodone Bitart ([place] (5/325)) 1 tab Q6H PRN PO pain; Start 10/20/16 at 19:30 Docusate Sodium (Colace) 100 mg BID PO Last administered on 10/25/16 09:00; Admin Dose 100 MG; Start 10/20/16 at 21:00 Diphenhydramine HCl (Benadryl) 25 mg Q6H PRN PO ITCHING Last administered on 20:26; Admin Dose 25 MG; Start 10/20/16 at 19:30 Aspirin (Halfprin) 81 mg DAILY PO Last administered on 10/25/16 09:00; Admin Dose 81 MG; Start 10/21/16 at 09:00 Atorvastatin Calcium (Lipitor) 10 mg QHS PO Last administered on 10/24/16 21: 07; Admin Dose 10 MG; Start 10/21/16 at 21:00 Carvedilol (Coreg) 3.125 mg BID PO Last administered on 10/25/16 09:02; Admin Dose 3.125 MG; Start 10/20/16 at 22:00 Clopidogrel Bisulfate (plaVIX) 75 mg DAILY PO Last administered on 10/25/16 09 :01; Admin Dose 75 MG; Start 10/21/16 at 09:00 Enalapril Maleate (Vasotec) 5 mg DAILY PO Last administered on 10/25/16 09:02 ; Admin Dose 5 MG; Start 10/21/16 at 09:00 Nitroglycerin (Nitroglycerin (Sl Tab) 0.4 Mg) 1 tab [id number] PRN SL CHEST PAIN ; Start 10/20/16 at 22:00 Trihexyphenidyl HCl (Artane) 5 mg BID PO Last administered on 10/25/16 08:59; Admin Dose 5 MG; Start 10/20/16 at 22:00 Enoxaparin Sodium (Lovenox) 40 mg DAILY SC Last administered on 10/25/16 09:15 ; Admin Dose 40 MG; Start 10/21/16 at 09:00 Famotidine (Pepcid) 20 mg BID PO Last administered on 10/25/16 09:01; Admin Dose 20 MG; Start 10/21/16 at 09:00 Non-Formulary Medication 1.5 ea QHS PO Last administered on 10/23/16 21:12; Admin Dose 1.5 EA; Start 10/20/16 at 23:00 Fluocinonide 1 applic 1 applic TID TOP Last administered on 10/25/16 09:08; Admin Dose 1 APPLIC; Start 10/21/16 at 09:53 Levofloxacin/ Dextrose (Levaquin 500mg/ D5W 100 ml (Pmx)) 100 ml @ 100 mls/hr Q24H IVPB Last administered on 10/24/16 21:07; Admin Dose 100 MLS/HR; Start at 19:30 Diphenhydramine HCl (Benadryl) 50 mg Q4H PRN IV ITCHING Last administered on 01:36; Admin Dose 50 MG; Start 10/23/16 at 01:30 Triamcinolone (Kenalog 0.1% Lotion) 1 applic TID TOP Last administered on 09:08; Admin Dose 1 APPLIC; Start 10/23/16 at 09:00 Methylprednisolone Sodium Succinate (Solu-Medrol) 125 mg Q12 IV Last administered on 10/25/16 08:58; Admin Dose 125 MG; Start 10/23/16 at 09:00 Bisacodyl 10 mg 10 mg DAILY PRN [place] CONSTIPATION; Start 10/24/16 at 09:00 Vancomycin HCl/ Sodium Chloride (Vancocin/NS) 250 ml @ 83.333 mls/ hr Q12H IVPB ; Start 10/25/16 at 13:00 CHRISTO CHASE MD Oct 25, 2016 12:23
[2016-10-25] MEDS ORDERED: VANCOMYCIN 1.5 GM in SOD CHLORIDE 0.9% 250 ML IVPB SCH (13:00)
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
[2016-10-25 20:37] VITALS: BP 132/77; RESP 16
[2016-10-25 21:22] LABS: TB-NIL 2.61 IU/mL
[2016-10-25] MEDS: ATORVASTATIN 10 MG TAB PO SCH (22:12)
[2016-10-25] MEDS: LEVOFLOXACIN 500MG/D5W (PMX) 100 ML IVPB SCH (22:14)
[2016-10-25] MEDS: HALOPERIDOL 10 MG PO SCH (22:14)
--- NOTE | 2016-10-25 22:17 | CONS ---
DATE OF ADMISSION: 10/20/2016 DATE OF CONSULTATION: 10/25/2016 SUBJECTIVE FINDINGS: The patient being followed for right medial ankle cellulitis, status post incisional biopsy. The patient remains in isolation. The patient is status post biopsy, which shows negative Gram stain at this time. OBJECTIVE FINDINGS VITAL SIGNS: Temperature 98.6, pulse 73, respiratory rate 20, blood pressure 143/85, pulse ox is 90 on room air. GENERAL: The patient alert and oriented, no acute distress. Regular respiration. EXTREMITIES: Patient's right ankle with improved skin appearance, color, texture. There are sutures present. No signs of cellulitis or lymphangitis. No malodor. LABORATORIES: WBC 8.9, hemoglobin 11.7, hematocrit 40.2, platelets 180. Cultures: Gram stain negative. Pathology: Superficial perivascular lymphocytic cell dermatitis with psoriasiform hyperplasia, crust and focal superficial acute upper dermal erosion. PAS stain is negative for fungal organisms. ASSESSMENT: 1. Severe eczema. 2. Resolving cellulitis. 3. Coronary artery disease with history of stent placement. 4. Tobacco dependence. PLAN: The patient's condition appears improved. The patient currently on droplet precautions while awaiting QuantiFERON TB gold. Recommend daily application of corticosteroid lotion and plan suture removal in 1 to 2 weeks. Further disposition per primary team. Dictated By: JAY MCMAHON/COLEMAN Conf#: [id number] DID#: [id number]
[2016-10-26 06:35] LABS: CREATININE 0.65 mg/dl (0.61-1.24)
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
[2016-10-26 08:14] VITALS: BP 130/71; RESP 18
[2016-10-26] MEDS: CLOPIDOGREL 75 MG TAB PO SCH (08:45)
[2016-10-26] MEDS: ASPIRIN (EC) 81 MG TAB PO SCH (08:45)
[2016-10-26] MEDS: FAMOTIDINE 20 MG TAB PO SCH ×2 (08:45→22:01)
[2016-10-26] MEDS: ENALAPRIL 5 MG TAB PO SCH (08:46)
[2016-10-26] MEDS: DOCUSATE SODIUM 100 MG CAP PO SCH ×2 (08:46→22:01)
[2016-10-26] MEDS: ENOXAPARIN 40 MG/0.4 ML SYG SC SCH (08:50)
[2016-10-26] MEDS: TRIAMCINOLONE ACET 0.1% 60 ML LOT TOP SCH ×3 (08:53→22:03)
[2016-10-26] MEDS: FLUOCINONIDE 0.05%/EMOLL 15 GM CR TOP SCH ×3 (08:53→22:03)
[2016-10-26] MEDS: TRIHEXYPHENIDYL 5 MG TAB PO SCH ×2 (08:53→22:01)
[2016-10-26] MEDS: METHYLPREDNISOLONE 125 MG INJ IV SCH ×2 (08:53→22:00)
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
[2016-10-26 16:33] LABS: CRYPTOCOCCAL ANTIGEN - SOURCE Serum
[2016-10-26 19:00] VITALS: BP 152/92; RESP 18
[2016-10-26] MEDS: LEVOFLOXACIN 500MG/D5W (PMX) 100 ML IVPB SCH (20:13)
[2016-10-26 22:00] VITALS: BP 133/70; PULSE 87; RESP 18
[2016-10-26] MEDS: ATORVASTATIN 10 MG TAB PO SCH (22:01)
[2016-10-26] MEDS: HALOPERIDOL 10 MG PO SCH (22:02)
[2016-10-27 08:48] VITALS: BP 140/86; RESP 18
[2016-10-27] MEDS: FLUOCINONIDE 0.05%/EMOLL 15 GM CR TOP SCH ×3 (08:52→21:29)
[2016-10-27] MEDS: TRIAMCINOLONE ACET 0.1% 60 ML LOT TOP SCH ×3 (08:52→21:29)
[2016-10-27] MEDS: FAMOTIDINE 20 MG TAB PO SCH ×2 (08:53→21:28)
[2016-10-27] MEDS: ENALAPRIL 5 MG TAB PO SCH (08:53)
[2016-10-27] MEDS: TRIHEXYPHENIDYL 5 MG TAB PO SCH ×2 (08:53→21:28)
[2016-10-27] MEDS: ASPIRIN (EC) 81 MG TAB PO SCH (08:53)
[2016-10-27] MEDS: CLOPIDOGREL 75 MG TAB PO SCH (08:53)
[2016-10-27] MEDS: DOCUSATE SODIUM 100 MG CAP PO SCH ×2 (08:54→21:27)
[2016-10-27] MEDS: METHYLPREDNISOLONE 125 MG INJ IV SCH ×2 (08:54→21:28)
[2016-10-27] MEDS: ENOXAPARIN 40 MG/0.4 ML SYG SC SCH (09:01)
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
[2016-10-27] MEDS: LEVOFLOXACIN 500MG/D5W (PMX) 100 ML IVPB SCH (19:58)
[2016-10-27 20:00] VITALS: BP 138/73; RESP 20
[2016-10-27] MEDS: ATORVASTATIN 10 MG TAB PO SCH (21:27)
[2016-10-27] MEDS: HALOPERIDOL 10 MG PO SCH (21:29)
[2016-10-28 08:37] VITALS: BP 143/84; RESP 18
[2016-10-28] MEDS: METHYLPREDNISOLONE 125 MG INJ IV SCH (08:39)
[2016-10-28] MEDS: TRIHEXYPHENIDYL 5 MG TAB PO SCH ×2 (08:39→20:23)
[2016-10-28] MEDS: ASPIRIN (EC) 81 MG TAB PO SCH (08:40)
[2016-10-28] MEDS: DOCUSATE SODIUM 100 MG CAP PO SCH ×2 (08:40→20:23)
[2016-10-28] MEDS: CLOPIDOGREL 75 MG TAB PO SCH (08:40)
[2016-10-28] MEDS: FAMOTIDINE 20 MG TAB PO SCH ×2 (08:40→20:24)
[2016-10-28] MEDS: ENALAPRIL 5 MG TAB PO SCH (08:40)
[2016-10-28] MEDS: TRIAMCINOLONE ACET 0.1% 60 ML LOT TOP SCH ×3 (08:41→20:24)
[2016-10-28] MEDS: FLUOCINONIDE 0.05%/EMOLL 15 GM CR TOP SCH ×3 (08:41→20:24)
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
[2016-10-28] MEDS: ENOXAPARIN 40 MG/0.4 ML SYG SC SCH (09:09)
[2016-10-28 09:31] LABS: ADD SCAN DIFF NO; HAAIG REFLEX REFLEX FILED
[2016-10-28 09:33] LABS: BASOPHILS % 0.2 % (0.0-2.0); HEMATOCRIT 44.1 % (42.0-52.0); HEMOGLOBIN 12.8 g/dl (14.0-18.0); LYMPHOCYTES # 1.9 10^3/ul (0.8-2.9); LYMPHOCYTES % 16.9 % (15.0-51.0); MEAN CORPUSCULAR HEMOGLOBIN 19.2 pg (29.0-33.0); MEAN PLATELET VOLUME 10.6 fl (7.4-10.4); MONOCYTE # 0.8 10^3/ul (0.3-0.9); MONOCYTES % 6.9 % (0.0-11.0); NEUTROPHIL # 8.5 10^3/ul (1.6-7.5); NEUTROPHILS % 73.9 % (39.0-77.0); PLATELET COUNT 273 10^3/UL (140-415); RED BLOOD COUNT 6.68 10^6/ul (4.70-6.10); RED CELL DISTRIBUTION WIDTH 18.1 % (11.5-14.5); WHITE BLOOD COUNT 11.5 10^3/ul (4.8-10.8)
[2016-10-28 09:50] LABS: ALBUMIN 3.4 g/dl (3.3-4.9); INR 0.93; PROTIME 12.5 Sec (12.2-14.2)
[2016-10-28 09:51] LABS: PARTIAL THROMBOPLASTIN TIME 25.8 Sec (25.0-35.0)
[2016-10-28 09:52] LABS: CREATININE 0.69 mg/dl (0.61-1.24)
[2016-10-28 09:53] LABS: ALBUMIN/GLOBULIN RATIO 1.21; BILIRUBIN,INDIRECT 0.4 mg/dl (0-1.1); BILIRUBIN,TOTAL 0.4 mg/dl (0.2-1.3); CALCIUM 8.6 mg/dl (8.4-10.2); TOTAL PROTEIN 6.2 g/dl (6.1-8.1)
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
[2016-10-28 11:12] LABS: HEPATITIS B CORE ANTIBODY NEGATIVE (NEGATIVE)
[2016-10-28] MEDS: ISONIAZID 300 MG TAB PO SCH (11:42)
[2016-10-28] MEDS: PYRIDOXINE 50 MG TAB PO SCH (11:42)
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
[2016-10-28 19:00] VITALS: BP 134/82; RESP 18
[2016-10-28] MEDS: LEVOFLOXACIN 500 MG TAB PO SCH (20:23)
[2016-10-28] MEDS: ATORVASTATIN 10 MG TAB PO SCH (20:24)
[2016-10-28] MEDS: HALOPERIDOL 10 MG PO SCH (20:25)
[2016-10-29 06:04] LABS: ADD SCAN DIFF NO
[2016-10-29 06:25] LABS: BASOPHILS % 0.3 % (0.0-2.0); EOSINOPHILS % 0.3 % (0.0-7.0); HEMATOCRIT 42.2 % (42.0-52.0); HEMOGLOBIN 12.5 g/dl (14.0-18.0); LYMPHOCYTES # 3.2 10^3/ul (0.8-2.9); LYMPHOCYTES % 27.6 % (15.0-51.0); MEAN CORPUSCULAR HEMOGLOBIN 19.3 pg (29.0-33.0); MEAN CORPUSCULAR HGB CONC 29.6 g/dl (32.0-37.0); MEAN CORPUSCULAR VOLUME 65.1 fl (82.0-101.0); MEAN PLATELET VOLUME 10.5 fl (7.4-10.4); MONOCYTE # 1.5 10^3/ul (0.3-0.9); MONOCYTES % 12.7 % (0.0-11.0); NEUTROPHIL # 6.5 10^3/ul (1.6-7.5); NEUTROPHILS % 55.6 % (39.0-77.0); NUCLEATED RED BLOOD CELLS% 0.3 /100WBC (0.0-0.0); PLATELET COUNT 229 10^3/UL (140-415); RED BLOOD COUNT 6.48 10^6/ul (4.70-6.10); RED CELL DISTRIBUTION WIDTH 17.8 % (11.5-14.5); WHITE BLOOD COUNT 11.7 10^3/ul (4.8-10.8)
[2016-10-29 07:12] LABS: POTASSIUM 3.4 mmol/L (3.5-5.1)
[2016-10-29 07:15] LABS: CALCIUM 8.2 mg/dl (8.4-10.2); CREATININE 0.61 mg/dl (0.61-1.24)
[2016-10-29 08:00] VITALS: BP 135/77; RESP 18
[2016-10-29] MEDS: TRIHEXYPHENIDYL 5 MG TAB PO SCH (08:50)
[2016-10-29] MEDS: ASPIRIN (EC) 81 MG TAB PO SCH (08:50)
[2016-10-29] MEDS: DOCUSATE SODIUM 100 MG CAP PO SCH (08:50)
[2016-10-29] MEDS: ISONIAZID 300 MG TAB PO SCH (08:51)
[2016-10-29] MEDS: LEVOFLOXACIN 500 MG TAB PO SCH (08:51)
[2016-10-29] MEDS: CLOPIDOGREL 75 MG TAB PO SCH (08:51)
[2016-10-29] MEDS: ENALAPRIL 5 MG TAB PO SCH (08:51)
[2016-10-29] MEDS: FAMOTIDINE 20 MG TAB PO SCH (08:51)
[2016-10-29] MEDS: PYRIDOXINE 50 MG TAB PO SCH (08:52)
[2016-10-29] MEDS: FLUOCINONIDE 0.05%/EMOLL 15 GM CR TOP SCH ×2 (08:52→12:09)
[2016-10-29] MEDS: TRIAMCINOLONE ACET 0.1% 60 ML LOT TOP SCH ×2 (08:52→12:09)
[2016-10-29] MEDS ORDERED: predniSONE 20 MG TAB PO SCH (09:00)
[2016-10-29] MEDS: ENOXAPARIN 40 MG/0.4 ML SYG SC SCH (09:01)
[2016-10-29] MEDS ORDERED: POTASSIUM CHLORIDE (SR) 20 MEQ TAB PO STA (09:49)
--- NOTE | 2016-10-29 09:50 | PDOCDIS ---
Discharge Instructions CONDITION Patient Condition: Stable HOME CARE INSTRUCTIONS: Special Diet: low fat / chol ACTIVITY: Activity Restrictions: Slowly Increase Activity FOLLOW UP/APPOINTMENTS Appointments Take your medications for TB for 9 months. See your doctor in the clinic in 1-2 weeks. FLACA PALOMINO Oct 29, 2016 09:50
[2016-10-29] MEDS ORDERED: [UNRECOGNIZED DRUG - CODE] TOP (09:54)
[2016-10-29] MEDS ORDERED: TR1B60 TOP (09:54)
[2016-10-29] MEDS ORDERED: ISON300T72 PO (09:54)
[2016-10-29] MEDS ORDERED: Pyridoxine PO (09:54)
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
== END 2016-10-29 13:15 | disposition home or self-care (01) | DRG 603 ==
LOC: MS2 18:54
PROVIDERS: ADMIT Internal Medicine; ATTEND Internal Medicine
PROC: 0HBMXZX Excision of Right Foot Skin, External Approach, Diagnostic (ICD-10-PCS; principal; 2016-10-23 18:00)
DX: L03.115 Cellulitis of right lower limb (principal); I10 Essential (primary) hypertension; F20.9 Schizophrenia, unspecified; I25.10 Atherosclerotic heart disease of native coronary artery without angina pectoris; F17.210 Nicotine dependence, cigarettes, uncomplicated; E78.5 Hyperlipidemia, unspecified; L30.8 Other specified dermatitis; B96.89 Other specified bacterial agents as the cause of diseases classified elsewhere; R76.11 Nonspecific reaction to tuberculin skin test without active tuberculosis; Z95.1 Presence of aortocoronary bypass graft
CPT/HCPCS: 71010; 73600; 73630; 73721; 80048; 80053; 80061; 80076; 80202; 81003; 82565; 83036; 83540; 83605; 83735; 84145; 84443; 84520; 84560; 85025; 85610; 85651; 85730; 86480; 86635; 86641; 86703; 86704; 86709; 86803; 87040; 87070; 87081; 87102; 87116; 87340; 88304; 88312; 93005; 93922; 94640; 94664; J1200; J1650; J1956; J2250; J2370; J2930; J3370; J7050; J7512

== ENCOUNTER 2017-01-19 07:01 | Inpatient (IN) | payer BC ==
[~2017-01-19] VITALS: Ht 170.2 cm; Wt 79.0 kg
[~2017-01-19 07:01] MED LIST: ASPI-664 PO; ATOR10TA65 PO; CARV3.1260 PO; CLOP75TA27 PO; ENAL5TAB PO; HALO10TA PO; ISON300T72 PO; NITR0.4T6 SL; Pyridoxine PO; TR1B60 TOP; TRIH5TAB PO; [UNRECOGNIZED DRUG - CODE] TOP
[2017-01-19] MEDS ORDERED: IPRATROPIUM (NEB) 0.5 MG/2.5 ML AMP INH STA (07:31)
[2017-01-19] MEDS ORDERED: ALBUTEROL 0.083% (NEB) 2.5 MG/3 ML AMP INH STA (07:31)
[2017-01-19 08:05] LABS: ADD SCAN DIFF NO
[2017-01-19 08:09] LABS: BASOPHIL # 0.1 10^3/ul (0.0-0.1); BASOPHILS % 0.8 % (0.0-2.0); EOSINOPHILS # 0.3 10^3/ul (0.0-0.5); HEMATOCRIT 42.8 % (42.0-52.0); HEMOGLOBIN 12.5 g/dl (14.0-18.0); LYMPHOCYTES # 1.5 10^3/ul (0.8-2.9); LYMPHOCYTES % 18.2 % (15.0-51.0); MEAN CORPUSCULAR HEMOGLOBIN 19.7 pg (29.0-33.0); MEAN CORPUSCULAR HGB CONC 29.2 g/dl (32.0-37.0); MEAN CORPUSCULAR VOLUME 67.6 fl (82.0-101.0); MEAN PLATELET VOLUME 10.5 fl (7.4-10.4); MONOCYTE # 1.1 10^3/ul (0.3-0.9); MONOCYTES % 12.7 % (0.0-11.0); NEUTROPHIL # 5.4 10^3/ul (1.6-7.5); NEUTROPHILS % 63.6 % (39.0-77.0); PLATELET COUNT 232 10^3/UL (140-415); RED BLOOD COUNT 6.33 10^6/ul (4.70-6.10); RED CELL DISTRIBUTION WIDTH 14.9 % (11.5-14.5); WHITE BLOOD COUNT 8.4 10^3/ul (4.8-10.8)
--- NOTE | 2017-01-19 08:28 | RADRPT ---
PROCEDURE: XR Chest. CLINICAL INDICATION: Shortness of breath TECHNIQUE: Single AP portable chest COMPARISON: 10/22/2016 Chest x-ray FINDINGS: The cardiomediastinal silhouette is within normal limits of size. The lungs are clear without pleur al effusion or focal consolidation. No pneumothorax. The osseous structures and soft tissues are unr emarkable. IMPRESSION: 1. No evidence for active cardiopulmonary disease. RPTAT:AAJJ Physician Ruma Date Time Electronically viewed and signed by Jimmie Fallon Physician on 01/19/2017 08:28 NELY/
[2017-01-19 08:34] LABS: ANION GAP 13 (8-16); BLOOD UREA NITROGEN 5 mg/dl (7-20); CALCIUM 8.9 mg/dl (8.4-10.2); CARBON DIOXIDE 34 mmol/L (21-31); CHLORIDE 92 mmol/L (97-110); CREATININE 0.55 mg/dl (0.61-1.24); GLUCOSE 179 mg/dl (70-220); POTASSIUM 4.1 mmol/L (3.5-5.1); SODIUM 135 mmol/L (135-144)
[2017-01-19 08:38] LABS: INR 0.95; PROTIME 12.7 Sec (12.2-14.2)
[2017-01-19 08:46] LABS: B-TYPE NATRIURETIC PEPTIDE 228 PG/ML (0-125)
[2017-01-19 08:48] LABS: PARTIAL THROMBOPLASTIN TIME 26.7 Sec (25.0-35.0)
[2017-01-19 09:04] LABS: TROPONIN-I < 0.012 ng/ml (0.00-0.12)
[2017-01-19 09:35] LABS: MODE NASAL CANNULA; MetHgb Venous 0.5 %; Sample Type Blood venous; Venous COHb 0.2 %; Venous Fraction OxyHgb 38.9 %
[2017-01-19] MEDS ORDERED: DEXAMETHASONE 10 MG/ML 1 ML INJ IV STA (09:42)
[2017-01-19] MEDS ORDERED: ALBUTEROL 0.083% (NEB) 2.5 MG/3 ML AMP NEB STA (09:42)
[2017-01-19] MEDS ORDERED: PYRI25TA12 PO (11:23)
[2017-01-19] MEDS ORDERED: ALBU18HF IH (11:27)
[2017-01-19] MEDS ORDERED: ATOR80TA75 ORAL (11:27)
[2017-01-19] MEDS ORDERED: FURO20TA3 ORAL (11:27)
[2017-01-19] MEDS ORDERED: FAMO20TA18 ORAL (11:27)
[2017-01-19] MEDS ORDERED: CLOB15OI15 TOP (11:27)
[2017-01-19] MEDS ORDERED: ACETAMINOPHEN 325 MG TAB PO PRN (12:00)
[2017-01-19] MEDS ORDERED: ONDANSETRON 4 MG INJ IV PRN (12:00)
--- NOTE | 2017-01-19 12:19 | ERA ---
ER Documentation Chief Complaint Date/Time DATE: 01/19/17 TIME: 12:11 Chief Complaint Complains of SOB with Sat at 82% HPI 56-year-old male with a history of COPD, CAD, hypertension, and schizophrenia brought in by sister for worsening shortness of breath over the past week. He has had no associated chest pain. Shortness of breath is worse with exertion. He has not had an associated cough, fever, chills, dizziness, orthopnea. No pleuritic chest pain. Per his sister, he does not take his Lasix as prescribed and does not use his inhalers. The patient states his inhalers make him more short of breath. No leg swelling or pain. ROS All systems reviewed and are negative except as per history of present illness. Medications Home Meds Active Scripts Triamcinolone Acetonide (Triamcinolone Acetonide) 0.1% - 60 Ml Lotion, 1 APPLIC TOP TID for 10 Days Prov:FLACA PALOMINO S. 10/29/16 Isoniazid* (Isoniazid*) 300 Mg Tablet, 300 MG PO DAILY for 30 Days, TAB 8 Refills Prov:FLACA PALOMINO S. 10/29/16 Fluocinonide/Emollient* Cream (Lidex E* Cream) 15 Gm Cr, 1 APPLIC TOP TID for 10 Days Prov:FLACA PALOMINO S. 10/29/16 Reported Medications Atorvastatin* (Atorvastatin*) 80 Mg Tablet, 80 MG ORAL HS, #30 01/19/17 Albuterol Sulfate* (Ventolin HFA*) 18 Gm Hfa.aer.ad, 2 PUFF IH BID Y for SHORTNESS OF BREATH, #18 01/19/17 Famotidine* (Famotidine*) 20 Mg Tablet, 20 MG ORAL DAILY, #30 01/19/17 Clobetasol Propionate* (Clobetasol Propionate*) 15 Gm Oint, 1 APPLIC TOP BID, # 1 TUB 01/19/17 Furosemide* (Furosemide*) 20 Mg Tablet, 20 MG ORAL DAILY, #30 01/19/17 Pyridoxine Hcl* (Pyridoxine Hcl*) 25 Mg Tablet, 25 MG PO DAILY, TAB 01/19/17 Nitroglycerin* (Nitroglycerin* SL) 0.4 Mg Tab.subl, 0.4 MG SL Q5MIN Y for CHEST PAIN, BOTTLE 10/20/16 Trihexyphenidyl Hcl* (Trihexyphenidyl Hcl*) 5 Mg Tab, 5 MG PO BID, #90 TAB 10/20/16 Enalapril Maleate* (Enalapril Maleate*) 5 Mg Tablet, 5 MG PO DAILY, TAB 10/20/16 Haloperidol* (Haloperidol*) 10 Mg Tablet, 10 MG PO QHS, TAB 10/20/16 Clopidogrel Bisulfate (Clopidogrel) 75 Mg Tablet, 75 MG PO DAILY, #30 TAB 10/20/16 Carvedilol* (Carvedilol*) 3.125 Mg Tablet, 3.125 MG PO BID, #60 TAB 10/20/16 Aspirin* (Aspirin* EC) 81 Mg Tablet.dr, 81 MG PO DAILY, TAB 10/20/16 Discontinued Reported Medications Atorvastatin Calcium (Atorvastatin Calcium) 10 Mg Tablet, 10 MG PO QHS, #30 TAB 10/20/16 Discontinued Scripts [Pyridoxine] 50 MG TAB No Conflict Check, 25 MG PO DAILY for 30 Days, 8 Refills Prov:FLACA PALOMINO 10/29/16 Allergies Allergies: Coded Allergies: No Known Allergy (Unverified , 10/21/16) NKA PER SISTER AGATA PMhx/Soc History of Surgery: Yes (STENT PLACEMENT, right lower leg) Anesthesia Reaction: No Hx Neurological Disorder: No Hx Respiratory Disorders: Yes (COPD) Hx Cardiac Disorders: Yes (CAD,HTN) Hx Psychiatric Problems: Yes (SCHIZOPHRENIA) Hx Miscellaneous Medical Probl: Yes (DYSLIPIDEMIA;CHRONIC CELLULITIS) Hx Alcohol Use: No Hx Substance Use: No Hx Tobacco Use: Yes Smoking Status: Former smoker FmHx Family History: No diabetes Physical Exam Vitals Vital Signs Date Time Temp Pulse Resp B/P Pulse Ox O2 Delivery O2 Flow Rate FiO2 01/19/17 12:01 84 18 129/65 95 Nasal Cannula 2.0 01/19/17 10:15 72 13 95 Nasal Cannula 2.0 01/19/17 10:07 76 15 110/76 96 Nasal Cannula 2.0 01/19/17 08:07 18 97 Nasal Cannula 2.0 Pulse Ox 01/19/17 07:48 Nasal Cannula 2 01/19/17 07:28 86 16 135/84 97 Nasal Cannula 2.0 01/19/17 07:05 97.4 101 20 144/71 84 Physical Exam Const: Sitting up in bed, mild respiratory distress, nontoxic Head: Atraumatic Eyes: Normal Conjunctiva ENT: Normal External Ears, Nose and Mouth. Neck: Full range of motion. No JVD. ~ No meningismus. Resp: Clear to auscultation bilaterally but diminished, no wheezing Cardio: Regular rate and rhythm, no murmurs Abd: Soft, non tender, distended. Normal bowel sounds Skin: No petechiae or rashes Back: No midline or flank tenderness Ext: No cyanosis. Right pedal edema with chronic healed wound and deformity above ankle with tissue loss Neur: Awake and alert Psych: Normal Mood and Affect Result Diagram: 01/19/17 0741 01/19/17 0741 Results 24 hrs Laboratory Tests Test 01/19/17 07:41 01/19/17 08:55 White Blood Count 8.410^3/ul Red Blood Count 6.3310^6/ul Hemoglobin 12.5g/dl Hematocrit 42.8% Mean Corpuscular Volume 67.6fl Mean Corpuscular Hemoglobin 19.7pg Mean Corpuscular Hemoglobin Concent 29.2g/dl Red Cell Distribution Width 14.9% Platelet Count 55437^3/UL Mean Platelet Volume 10.5fl Neutrophils % 63.6% Lymphocytes % 18.2% Monocytes % 12.7% Eosinophils % 4.0% Basophils % 0.8% Nucleated Red Blood Cells % 0.0/100WBC Neutrophils # 5.410^3/ul Lymphocytes # 1.510^3/ul Monocytes # 1.110^3/ul Eosinophils # 0.310^3/ul Basophils # 0.110^3/ul Nucleated Red Blood Cells # 0.010^3/ul Prothrombin Time 12.7Sec Prothrombin Time Ratio 1.0 INR International Normalized Ratio 0.95 Activated Partial Thromboplast Time 26.7Sec Sodium Level 135mmol/L Potassium Level 4.1mmol/L Chloride Level 92mmol/L Carbon Dioxide Level 34mmol/L Anion Gap 13 Blood Urea Nitrogen 5mg/dl Creatinine 0.55mg/dl Glucose Level 179mg/dl Calcium Level 8.9mg/dl Troponin I < 0.012ng/ml B-Type Natriuretic Peptide 228PG/ML Blood Gas Specimen Source Blood venous Arterial Blood Date Drawn 01/19/2017 9:20:35 AM Arterial Blood Gas Puncture Site VENOUS LINE Cash Test N/A Venous Blood pH 7.314 Venous Blood pCO2 (Temp Corrected) 66.6mmHG Venous Blood pO2 (Temp Corrected) 25.9mmHG Venous Blood HCO3 33.1mmol/L Venous Blood Oxygen Saturation 39.2mmHG Venous Blood Base Excess 4.9mmol/L Venous Blood Total Hemoglobin 13.0g/dl Venous Blood Oxyhemoglobin 38.9% Venous Blood Methemoglobin 0.5% Blood Gas A-a O2 Differential 87.9mmHg Carboxyhemoglobin 0.2% Blood Gas Temperature 37.0C Blood Gas Modality NASAL CANNULA FiO2 27.0% Blood Gas Notified Whom LS Blood Gas Notified Time 01/19/2017 9:35:05 AM Current Medications Medications (Trade) Dose Ordered Sig/Serena Route PRN Reason Start Time Stop Time Status Last Admin Dose Admin Albuterol (Proventil 0.083% (Neb)) 5 mg ONCE STAT INH 01/19/17 07:31 01/19/17 07:33 DC 01/19/17 08:06 Ipratropium [place] (Atrovent 0.02% (Neb)) 0.5 mg ONCE STAT INH 01/19/17 07:31 01/19/17 07:33 DC 01/19/17 08:05 Albuterol (Proventil 0.083% (Neb)) 5 mg ONCE STAT NEB 01/19/17 09:42 01/19/17 09:44 DC 01/19/17 10:13 Dexamethasone (Decadron) 10 mg ONCE STAT IV 01/19/17 09:42 01/19/17 09:44 DC 01/19/17 10:11 Ondansetron HCl (Zofran Inj) 4 mg ER BRIDGE PRN IV NAUSEA AND/OR VOMITING 01/19/17 12:00 01/20/17 11:59 Acetaminophen (Tylenol Tab) 650 mg ER BRIDGE PRN PO MILD PAIN/FEVER 01/19/17 12:00 01/20/17 11:59 Procedures/MDM EKG: Rate/Rhythm: Normal Sinus Rhythm QRS, ST, T-waves: Nonspecific inferior T-wave abnormality, no changes consistent w/ acute ischemia Impression: No evidence of ischemia or arrhythmia Chest x-ray shows no acute pathology Labs: CBC: no anemia or evidence of infection CMP: High CO2 Troponin within normal limits Blood gas shows evidence of COPD exacerbation MDM Shortness of breath most consistent with COPD exacerbation. Vitals are notable for hypoxia on room air that improved with supplemental oxygen. Considered URI , pneumonia, allergic reaction, PE, pericardial effusion, ACS but less likely based on history and physical. Troponin is within normal limits. EKG does not show any significant changes. Breathing treatments were given with improvement of symptoms. However patient's hypoxia did not resolve. Steroids were given. There is no evidence of active pneumonia or bronchitis so antibiotics were not ordered. Patient refuses to use inhalers at home. I do not think he is stable for discharge and likely will not treat himself as instructed. I believe he would benefit from admission for close respiratory monitoring and frequent breathing treatments. Critical Care Time: 35 minutes Treatments/Evaluations: Close monitoring and treatment of unstable vital signs, cardiorespiratory, and neurologic status, while maintaining tight balance of fluid, respiratory, and cardiac interventions. This time includes discussing the case with the patient and the patients family. This time does not include all procedures stated elsewhere in this record. This time also includes reviewing old records, labs and radiological studies. This time includes examining and re-examining the patient. Additionally, this time also includes arranging care with admitting and consulting physicians. Accepting Care Team: Current data and ongoing care discussed. Time: Time of admission Primary Provider: Didier Consulting: none Outstanding Data: RLE Venous ultrasound Departure Diagnosis: Primary Impression: Acute respiratory failure with hypoxia and hypercapnia Additional Impression: COPD exacerbation Condition: Serious ROXANE ELLIS MD Jan 19, 2017 12:19
--- NOTE | 2017-01-19 12:56 | RADRPT ---
PROCEDURE: US Lower extremity Venous. CLINICAL INDICATION: Leg pain. Leg swelling. TECHNIQUE: Multiple sonographic images of the right lower extremity deep venous system was obtaine d utilizing grayscale, color-flow, compressive sonography and doppler imaging with augmentation. Th e images were reviewed on a PACS workstation. COMPARISON: None FINDINGS: There is normal compressibility and flow within the right common femoral, deep femoral, superficial femoral and popliteal veins. The deep veins the calf were incompletely visualized. There are no find ings of deep venous thrombosis. IMPRESSION: No sonographic evidence for deep venous thrombosis. RPTAT: EE .Sarah Sanchez MD, MD Date Time Electronically viewed and signed by .Sarah Sanchez MD, on 01/19/2017 12:56 ./
--- NOTE | 2017-01-19 13:27 | RADRPT ---
PROCEDURE: US Lower extremity Venous. CLINICAL INDICATION: Shortness of breath TECHNIQUE: Multiple sonographic images of the bilateral lower extremity deep venous system was obt ained utilizing grayscale, color-flow, compressive sonography and doppler imaging with augmentation. The images were reviewed on a PACS workstation. COMPARISON: None. FINDINGS: There is normal compressibility and flow within the bilateral common femoral, deep femoral, superfic ial femoral and popliteal veins. The deep veins the calf were incompletely visualized. There are no findings of deep venous thrombosis. IMPRESSION: No sonographic evidence for deep venous thrombosis. RPTAT: QQ .Sarah Sanchez MD, MD Date Time Electronically viewed and signed by .Sarah Sanchez MD, on 01/19/2017 13:27 .Atilio/
[2017-01-19] MEDS ORDERED: NITROGLYCERIN (SL) 0.4 MG TAB SL PRN (14:00)
[2017-01-19] MEDS ORDERED: ALBUTEROL 18 GM INHALER INH PRN (14:00)
--- NOTE | 2017-01-19 14:03 | CONS ---
Date/Time of Note Date/Time of Note DATE: 01/19/17 TIME: 13:59 Assessment/Plan Assessment/Plan Additional Assessment/Plan Chest x-ray was reviewed from today which is essentially clear. ABG is a venous blood gas. Assessment recommendations; 1. Patient admitted with shortness of breath possibly from abdominal distention and possibly ascites. 2. History of schizophrenia. 3. Underlying COPD. However the findings currently are not compatible with that diagnosis and are likely from underlying abdominal distention. Obtain ultrasound of the abdomen. If there is significant ascites, patient will need to have a paracentesis performed. Meanwhile continue current treatment. Consultation Date/Type/Reason Admit Date/Time Date of Consultation: Jan 19, 2017 Type of Consultation: Pulmonary Reason for Consultation Pulmonary consultations obtained for evaluation of shortness of breath. History of present illness; patient is a 56-year-old white male who came into the emergency room with a few days history of increasing shortness of breath as well as abdominal distention. Patient denies any fever chills wheezing or sputum production. Any chest pain. Denies any nausea vomiting. Does complain of dyspnea on moderate exertion. Past medical history; 1. History of COPD. 2. Possibly underlying cirrhosis. 3. History of right lower extremity arterial stenting. 4. History of schizophrenia. 5. History of hypertension. Medications; reviewed. Allergies; none. Social history; patient is a former smoker. No history of alcohol or drug abuse. Family history; noncontributory. Occupation she; patient on disability. Review of systems; denies any headache, visual changes. Any seizures. Any sinus symptoms. Any chest pain. Denies any wheezing. Complains of abdominal distention. Denies any edema. Denies any hematochezia or melena. Complains of orthopnea. Denies any weight change. Next General exam; middle-aged male, currently in no distress. Awake and alert. Social History Smoking Status: Former smoker Exam/Review of Systems Vital Signs Vitals Vital Signs Date Time Temp Pulse Resp B/P Pulse Ox O2 Delivery O2 Flow Rate FiO2 01/19/17 12:01 84 18 129/65 95 Nasal Cannula 2.0 01/19/17 07:05 97.4 Exam HEENT exam is; supple neck, no JVD. No lymphadenopathy. Midline trachea. No thyromegaly. Patient is edentulous and wears dentures. Pupils are equal and reactive to light bilaterally. Extraocular movements are intact. Chest examination; diminished but clear vessel. No added sound. S1-S2 audible , no murmurs. Regular rhythm. Abdomen examination; protuberant. There is a reducible umbilical hernia present. No organomegaly. There is a positive fluid thrill. Extremity exam; no peripheral edema. Pulses 1+ bilaterally. No clubbing. [employer] examination; no focal deficit. Results Result Diagram: 01/19/17 0741 01/19/17 0741 Results 24 hrs Laboratory Tests Test 01/19/17 07:41 01/19/17 08:55 White Blood Count 8.4 # Red Blood Count 6.33 H Hemoglobin 12.5 L Hematocrit 42.8 Mean Corpuscular Volume 67.6 L Mean Corpuscular Hemoglobin 19.7 L Mean Corpuscular Hemoglobin Concent 29.2 L Red Cell Distribution Width 14.9 H Platelet Count 232 Mean Platelet Volume 10.5 H Neutrophils % 63.6 Lymphocytes % 18.2 Monocytes % 12.7 H Eosinophils % 4.0 Basophils % 0.8 Nucleated Red Blood Cells % 0.0 Neutrophils # 5.4 Lymphocytes # 1.5 Monocytes # 1.1 H Eosinophils # 0.3 Basophils # 0.1 Nucleated Red Blood Cells # 0.0 Prothrombin Time 12.7 Prothrombin Time Ratio 1.0 INR International Normalized Ratio 0.95 Activated Partial Thromboplast Time 26.7 Sodium Level 135 Potassium Level 4.1 Chloride Level 92 L Carbon Dioxide Level 34 H Anion Gap 13 Blood Urea Nitrogen 5 L Creatinine 0.55 L Glucose Level 179 Calcium Level 8.9 Troponin I < 0.012 B-Type Natriuretic Peptide 228 H Blood Gas Specimen Source Blood venous Arterial Blood Date Drawn 01/19/2017 9:20:35 AM Arterial Blood Gas Puncture Site VENOUS LINE Cash Test N/A Venous Blood pH 7.314 L Venous Blood pCO2 (Temp Corrected) 66.6 H Venous Blood pO2 (Temp Corrected) 25.9 Venous Blood HCO3 33.1 H Venous Blood Oxygen Saturation 39.2 L Venous Blood Base Excess 4.9 Venous Blood Total Hemoglobin 13.0 Venous Blood Oxyhemoglobin 38.9 Venous Blood Methemoglobin 0.5 Blood Gas A-a O2 Differential 87.9 Carboxyhemoglobin 0.2 Blood Gas Temperature 37.0 Blood Gas Modality NASAL CANNULA FiO2 27.0 Blood Gas Notified Whom LS Blood Gas Notified Time 01/19/2017 9:35:05 AM Medications Medications Current Medications Albuterol (Proventil (O.r. Use Only)) 2 puff BID PRN INH SHORTNESS OF BREATH; Start 01/19/17 at 14:00; Status UNV Aspirin (Halfprin) 81 mg DAILY PO ; Start 01/20/17 at 09:00; Status UNV Atorvastatin Calcium (Lipitor) 80 mg HS PO ; Start 01/19/17 at 21:00; Status UNV Carvedilol (Coreg) 3.125 mg BID PO ; Start 01/19/17 at 21:00; Status UNV Clobetasol Propionate (Temovate 0.05% Oint) 1 applic BID TOP ; Start 01/19/17 at 21:00; Status UNV Clopidogrel Bisulfate (plaVIX) 75 mg DAILY PO ; Start 01/20/17 at 09:00; Status UNV Enalapril Maleate (Vasotec) 5 mg DAILY PO ; Start 01/20/17 at 09:00; Status UNV Famotidine (Pepcid) 20 mg DAILY PO ; Start 01/20/17 at 09:00; Status UNV Fluocinonide (Lidex E 0.05%/ Emoll Cr) 1 applic TID TOP ; Start 01/19/17 at 21: 00; Status UNV Furosemide (Lasix) 20 mg DAILY PO ; Start 01/20/17 at 09:00; Status UNV Nitroglycerin (Nitroglycerin (Sl Tab) 0.4 Mg) 1 tab [id number] PRN SL CHEST PAIN ; Start 01/19/17 at 14:00; Status UNV Pyridoxine HCl (Vitamin B6) 25 mg DAILY PO ; Start 01/20/17 at 09:00; Status UNV Triamcinolone (Kenalog 0.1% Lotion) 1 applic TID TOP ; Start 01/19/17 at 21:00; Status UNV Trihexyphenidyl HCl (Artane) 5 mg BID PO ; Start 01/19/17 at 21:00; Status UNV Haloperidol (Haldol) 5 mg ONCE ONCE PO ; Start 01/19/17 at 14:00; Stop at 14:01; Status UNV Isoniazid (Isoniazid) 300 mg DAILY PO ; Start 01/19/17 at 14:00; Status UNV QARNI,CAITLIN Jan 19, 2017 14:03
--- NOTE | 2017-01-19 14:13 | HP ---
Date/Time of Note Date/Time of Note DATE: 01/19/17 TIME: 12:52 Assessment/Plan VTE Prophylaxis VTE Prophylaxis Intervention: LMWH Assessment/Plan Assessment/Plan -Acute respiratory failure with hypoxia and hypercapnia - admit to hospital - pulmonary consult- Dr Regan notified - resume home meds -COPD exacerbation - cont breathing treatments - Abdominal distention sec to possible Ascites - GI consult- Dr richard notified - SP stent placement RLE- deformity with tissue loss noted - Hx QGold - positive 11/2016- on Isoianized- will cont - cxr negative in 10/2106 - Edema- RLE - will do Doppler r/o any DVT- fu -HX Schizophrenia - no acute issues - Hypertension - Dyslipidemia - low cholesterol diet - atorvastatin - Hx Chronic Cellulitis- Lovenox for DVT, Protonix for GI prophylaxis Dw Dr Longo HPI/ROS Admit Date/Time Admit Date/Time Hx of Present Illness ROS All systems reviewed and are negative except as per history of present illness. Medications Home Meds Active Scripts Triamcinolone Acetonide (Triamcinolone Acetonide) 0.1% - 60 Ml Lotion, 1 APPLIC TOP TID for 10 Days Prov:FLACA PALOMINO S. 10/29/16 Isoniazid* (Isoniazid*) 300 Mg Tablet, 300 MG PO DAILY for 30 Days, TAB 8 Refills Prov:FLACA PALOMINO S. 10/29/16 Fluocinonide/Emollient* Cream (Lidex E* Cream) 15 Gm Cr, 1 APPLIC TOP TID for 10 Days Prov:FLACA PALOMINO S. 10/29/16 Reported Medications Atorvastatin* (Atorvastatin*) 80 Mg Tablet, 80 MG ORAL HS, #30 01/19/17 Albuterol Sulfate* (Ventolin HFA*) 18 Gm Hfa.aer.ad, 2 PUFF IH BID Y for SHORTNESS OF BREATH, #18 01/19/17 Famotidine* (Famotidine*) 20 Mg Tablet, 20 MG ORAL DAILY, #30 01/19/17 Clobetasol Propionate* (Clobetasol Propionate*) 15 Gm Oint, 1 APPLIC TOP BID, # 1 TUB 01/19/17 Furosemide* (Furosemide*) 20 Mg Tablet, 20 MG ORAL DAILY, #30 6/18/17 Pyridoxine Hcl* (Pyridoxine Hcl*) 25 Mg Tablet, 25 MG PO DAILY, TAB 01/19/17 Nitroglycerin* (Nitroglycerin* SL) 0.4 Mg Tab.subl, 0.4 MG SL Q5MIN Y for CHEST PAIN, BOTTLE 10/20/16 Trihexyphenidyl Hcl* (Trihexyphenidyl Hcl*) 5 Mg Tab, 5 MG PO BID, #90 TAB 10/20/16 Enalapril Maleate* (Enalapril Maleate*) 5 Mg Tablet, 5 MG PO DAILY, TAB 10/20/16 Haloperidol* (Haloperidol*) 10 Mg Tablet, 10 MG PO QHS, TAB 10/20/16 Clopidogrel Bisulfate (Clopidogrel) 75 Mg Tablet, 75 MG PO DAILY, #30 TAB 10/20/16 Carvedilol* (Carvedilol*) 3.125 Mg Tablet, 3.125 MG PO BID, #60 TAB 10/20/16 Aspirin* (Aspirin* EC) 81 Mg Tablet.dr, 81 MG PO DAILY, TAB 10/20/16 Discontinued Reported Medications Atorvastatin Calcium (Atorvastatin Calcium) 10 Mg Tablet, 10 MG PO QHS, #30 TAB 10/20/16 Discontinued Scripts [Pyridoxine] 50 MG TAB No Conflict Check, 25 MG PO DAILY for 30 Days, 8 Refills Prov:GEORGETTEFLACA Flynn 10/29/16 Allergies Allergies: Coded Allergies: No Known Allergy (Unverified , 10/21/16) NKA PER SISTER VERA PMH/Family/Social Past Medical History PMhx/Soc History of Surgery: Yes (STENT PLACEMENT, right lower leg) Anesthesia Reaction: No Hx Neurological Disorder: No Hx Respiratory Disorders: Yes (COPD) Hx Cardiac Disorders: Yes (CAD,HTN) Hx Psychiatric Problems: Yes (SCHIZOPHRENIA) Hx Miscellaneous Medical Probl: Yes (DYSLIPIDEMIA;CHRONIC CELLULITIS) Hx Alcohol Use: No Hx Substance Use: No Hx Tobacco Use: Yes Smoking Status: Former smoker FmHx Family History: No diabetes Social History Smoking Status: Former smoker Exam/Review of Systems Vital Signs Vitals Vital Signs Date Time Temp Pulse Resp B/P Pulse Ox O2 Delivery O2 Flow Rate FiO2 01/19/17 12:01 84 18 129/65 95 Nasal Cannula 2.0 01/19/17 07:05 97.4 Exam Constitutional: alert, well developed Psych: nl mood/affect Eyes: other (high cholesterol rings arround both eyes noted. ) Respiratory: diminished breath sounds Cardiovascular: nl pulses, regular rate and rhythm Gastrointestinal: distended, soft Musculoskeletal: other (RLE- deformity noticed) Extremities: edema (RLE edema nore than left.Right pedal edema with chronic healed wound. Deformity above ankle with tissue loss noted) Neurological: nl speech, other (alert, follws simple commands) Skin: other Labs Result Diagram: 01/19/17 0741 01/19/17 0741 Procedures Procedures EKG: Rate/Rhythm: Normal Sinus Rhythm QRS, ST, T-waves: Nonspecific inferior T-wave abnormality, no changes consistent w/ acute ischemia Impression: No evidence of ischemia or arrhythmia Chest x-ray shows no acute pathology Labs: CBC: no anemia or evidence of infection CMP: High CO2 Troponin within normal limits Blood gas shows evidence of COPD exacerbation RAMSES LAU Jan 19, 2017 13:02
--- NOTE | 2017-01-19 14:27 | RADRPT ---
PROCEDURE: US Abdomen. CLINICAL INDICATION: Distended abdomen TECHNIQUE: Multiple real-time images were acquired of the patient's abdomen using a high resolutio n linear transducer. COMPARISON: None FINDINGS: No abdominal ascites identified. The bladder is distended. IMPRESSION: No evidence for ascites. However there is a markedly distended bladder RPTAT: QQ .Sarah Sanchez MD, Date Time Electronically viewed and signed by .Sarah Sanchez MD, MD on 01/19/2017 14:27 .Atilio/
[2017-01-19] MEDS ORDERED: HALOPERIDOL 5 MG TAB PO ONE (15:00)
[2017-01-19 15:54] VITALS: BP 136/73; PULSE 106; RESP 18
[2017-01-19 15:57] VITALS: Ht 170.2 cm; Wt 79.0 kg
[2017-01-19 16:39] VITALS: PULSE 111
[2017-01-19] MEDS: ISONIAZID 300 MG TAB PO SCH (18:50)
[2017-01-19 20:14] VITALS: PULSE 100
[2017-01-19 20:18] VITALS: BP 151/70; RESP 18
--- NOTE | 2017-01-19 20:58 | CONS ---
DATE OF ADMISSION: 01/19/2017 DATE OF CONSULTATION: REFERRING PHYSICIAN: Dr. Carbajal HISTORY OF PRESENT ILLNESS: The patient is a 56-year-old gentleman with a history of COPD, coronary artery disease, hypertension, schizophrenia who was brought in by the sister for shortness of breat h. No chest pain. No cough. The patient feels that the abdomen is distended. As per the ER physi rc who had a discussion with the sister, patient does not use his bronchodilator and does not take even diuretics on time. No swelling or any pain. REVIEW OF SYSTEMS: Negative. HOME MEDICATIONS: Reviewed. The patient was on: 1. Isoniazid. 2. Famotidine. 3. Lasix. 4. Digoxin. 5. Nitroglycerin. 6. Enalapril maleate. 7. Haloperidol. 8. Plavix. 9. Carvedilol. 10. Aspirin. 11. Statin. 12. Pyridoxine. ALLERGIES: NONE. PAST MEDICAL HISTORY: Stent in the right lower leg. COPD, coronary artery disease, hypertension, s chizophrenia, dyslipidemia, chronic cellulitis. SOCIAL HISTORY: Former smoker. FAMILY HISTORY: Nothing significant. PHYSICAL EXAMINATION: VITAL SIGNS: Stable. HEENT: Unremarkable. NECK: Supple. No thyromegaly, no lymphadenopathy. CARDIOVASCULAR: No murmur, gallop, or click. LUNGS: Clear. ABDOMEN: Soft, nontender. No organomegaly, no mass felt in upper abdomen. EXTREMITIES: No edema. CENTRAL NERVOUS SYSTEM: Grossly within normal limits. LABORATORY DATA: Hematocrit is 42, platelet count was normal. BNP also was grossly within normal l imits. Coagulation also was normal. Abdominal ultrasound was normal. There was no ascites. The c hest x-ray, no evidence of cardiopulmonary disease. IMPRESSION: 1. Schizophrenia. 2. Shortness of breath. 3. Chronic obstructive pulmonary disease. 4. A stent in the lower extremity. 5. Coronary artery disease. 6. Distended urinary bladder. PLAN: 1. The patient needs Webb catheter and, with that, his abdominal symptoms will resolve and most pr obably shortness of breath. He has a urinary bladder outlet obstruction based on ultrasound report. 2. There is no evidence of ascites. 3. Chest x-ray also appears normal. So, the plan is to place a Webb catheter now, continue with the rest of the medication, and once th e urinary bladder is emptied, we will evaluate his symptoms. Dictated By: EDITH MCKEON/COLEMAN Conf#: [id number] DID#: [id number] CC: TARAS CARBAJAL MD;*EndCC*
[2017-01-19] MEDS ORDERED: TRIAMCINOLONE ACET 0.1% 60 ML LOT TOP SCH (21:00)
[2017-01-19] MEDS ORDERED: CLOBETASOL 0.05% 15 GM OINT TOP SCH (21:00)
[2017-01-19] MEDS ORDERED: FLUOCINONIDE 0.05%/EMOLL 15 GM CR TOP SCH (21:00)
[2017-01-19] MEDS: ATORVASTATIN 80 MG TAB PO SCH (21:53)
[2017-01-20] VITALS (10 sets, daily range): BP systolic 110–133; BP diastolic 54–67; PULSE 62–86; RESP 18–20
[2017-01-20] MEDS: TRIHEXYPHENIDYL 5 MG TAB PO SCH ×3 (00:37→21:41)
[2017-01-20] MEDS ORDERED: PANTOPRAZOLE (EC) 40 MG TAB PO ONE (09:00)
[2017-01-20] MEDS: ISONIAZID 300 MG TAB PO SCH (09:08)
[2017-01-20] MEDS: FAMOTIDINE 20 MG TAB PO SCH (09:09)
[2017-01-20] MEDS: PYRIDOXINE 50 MG TAB PO SCH (09:09)
[2017-01-20] MEDS: ASPIRIN (EC) 81 MG TAB PO SCH (09:09)
[2017-01-20] MEDS: FUROSEMIDE 20 MG TAB PO SCH (09:09)
[2017-01-20] MEDS: ENALAPRIL 5 MG TAB PO SCH (09:09)
[2017-01-20] MEDS: CLOPIDOGREL 75 MG TAB PO SCH (09:09)
[2017-01-20] MEDS: ENOXAPARIN 40 MG/0.4 ML SYG SC SCH (09:11)
[2017-01-20 11:03] LABS: ADD SCAN DIFF NO
[2017-01-20 11:09] LABS: ABNORMAL IP MESSAGE 1; BASOPHILS % 0.1 % (0.0-2.0); HEMATOCRIT 44.1 % (42.0-52.0); HEMOGLOBIN 12.6 g/dl (14.0-18.0); LYMPHOCYTES # 1.5 10^3/ul (0.8-2.9); LYMPHOCYTES % 10.5 % (15.0-51.0); MEAN CORPUSCULAR HGB CONC 28.6 g/dl (32.0-37.0); MEAN CORPUSCULAR VOLUME 66.5 fl (82.0-101.0); MONOCYTES % 6.9 % (0.0-11.0); NEUTROPHIL # 11.8 10^3/ul (1.6-7.5); NEUTROPHILS % 81.7 % (39.0-77.0); PLATELET COUNT 264 10^3/UL (140-415); RED BLOOD COUNT 6.63 10^6/ul (4.70-6.10); RED CELL DISTRIBUTION WIDTH 16.6 % (11.5-14.5); WHITE BLOOD COUNT 14.4 10^3/ul (4.8-10.8)
[2017-01-20 11:35] LABS: CALCIUM 9.1 mg/dl (8.4-10.2); CREATININE 0.56 mg/dl (0.61-1.24); POTASSIUM 4.6 mmol/L (3.5-5.1)
--- NOTE | 2017-01-20 13:45 | CONS ---
Date/Time of Note Date/Time of Note DATE: 01/20/17 TIME: 13:43 Assessment/Plan Assessment/Plan Additional Assessment/Plan Assessment recommendations; 1. Patient admitted for shortness of breath and discovered to have acute urinary retention with markedly distended urinary bladder, likely from underlying BPH. Patient markedly improved after Webb catheter was placed in. 2. History of schizophrenic, COPD, schizophrenia, as well as right lower extremity arterial stenting. 3. Currently no evidence of any acute cardiopulmonary pathology. Continue current treatment. Will obtain a UA. Patient will need to have a urology evaluation done. Consultation Date/Type/Reason Admit Date/Time Jan 19, 2017 at 15:37 Initial Consult Date 01/19/17 Type of Consultation: Pulmonary 24 HR Interval Summary Free Text/Dictation Patient's condition is markedly improved. Patient underwent ultrasound of the abdomen which showed distended urinary bladder therefore a Webb catheter was placed with marked reduction in abdominal swelling as well as significant reduction in shortness of breath. Patient denies any wheezing, chest pain, abdominal pain, nausea vomiting. General exam; middle-aged male, awake alert currently in no distress. Exam/Review of Systems Vital Signs Vitals Vital Signs Date Time Temp Pulse Resp B/P Pulse Ox O2 Delivery O2 Flow Rate FiO2 01/20/17 12:25 98.5 75 20 133/60 96 01/20/17 08:20 Nasal Cannula 3.0 Intake and Output 01/19/17 01/19/17 01/20/17 15:00 23:00 07:00 Intake Total 300 ml 200 ml Output Total 700 ml 500 ml Balance -400 ml -300 ml Exam HEENT exam; supple neck, no JVD. No lymphadenopathy. Midline trachea. No thyromegaly. Pharynx is clear. Patient is edentulous and wears dentures. Chest examination; diminished but clear vessel. S1-S2 audible, no murmurs. Regular rhythm. Abdomen examination; soft, nontender. No organomegaly. Bowel sounds audible. Webb catheter in place. Extremity examination; no peripheral edema. 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 Results Result Diagram: 01/20/17 0950 01/20/17 0950 Results 24 hrs Laboratory Tests Test 01/20/17 09:50 White Blood Count 14.4 #H Red Blood Count 6.63 H Hemoglobin 12.6 L Hematocrit 44.1 Mean Corpuscular Volume 66.5 L Mean Corpuscular Hemoglobin 19.0 L Mean Corpuscular Hemoglobin Concent 28.6 L Red Cell Distribution Width 16.6 H Platelet Count 264 Mean Platelet Volume 11.0 H Neutrophils % 81.7 H Lymphocytes % 10.5 L Monocytes % 6.9 Eosinophils % 0.0 Basophils % 0.1 Nucleated Red Blood Cells % 0.0 Neutrophils # 11.8 H Lymphocytes # 1.5 Monocytes # 1.0 H Eosinophils # 0.0 Basophils # 0.0 Nucleated Red Blood Cells # 0.0 Sodium Level 129 L Potassium Level 4.6 Chloride Level 90 L Carbon Dioxide Level 32 H Anion Gap 12 Blood Urea Nitrogen 9 Creatinine 0.56 L Glucose Level 172 Calcium Level 9.1 Medications Medications Current Medications Albuterol (Ventolin Hfa) 2 puff BID PRN INH SHORTNESS OF BREATH; Start at 14:00 Aspirin (Halfprin) 81 mg DAILY PO Last administered on 01/20/17 09:09; Admin Dose 81 MG; Start 01/20/17 at 09:00 Atorvastatin Calcium (Lipitor) 80 mg HS PO Last administered on 01/19/17 21:53 ; Admin Dose 80 MG; Start 01/19/17 at 21:00 Carvedilol (Coreg) 3.125 mg BID PO Last administered on 01/20/17 09:09; Admin Dose 3.125 MG; Start 01/19/17 at 21:00 Clopidogrel Bisulfate (plaVIX) 75 mg DAILY PO Last administered on 01/20/17 09 :09; Admin Dose 75 MG; Start 01/20/17 at 09:00 Enalapril Maleate (Vasotec) 5 mg DAILY PO Last administered on 01/20/17 09:09 ; Admin Dose 5 MG; Start 01/20/17 at 09:00 Famotidine (Pepcid) 20 mg DAILY PO Last administered on 01/20/17 09:09; Admin Dose 20 MG; Start 01/20/17 at 09:00 Furosemide (Lasix) 20 mg DAILY PO Last administered on 01/20/17 09:09; Admin Dose 20 MG; Start 01/20/17 at 09:00 Nitroglycerin (Nitroglycerin (Sl Tab) 0.4 Mg) 1 tab [id number] PRN SL CHEST PAIN ; Start 01/19/17 at 14:00 Pyridoxine HCl (Vitamin B6) 25 mg DAILY PO Last administered on 01/20/17 09:09 ; Admin Dose 25 MG; Start 01/20/17 at 09:00 Trihexyphenidyl HCl (Artane) 5 mg BID PO Last administered on 01/20/17 09:08; Admin Dose 5 MG; Start 01/19/17 at 21:00 Isoniazid (Isoniazid) 300 mg DAILY PO Last administered on 01/20/17 09:08; Admin Dose 300 MG; Start 01/19/17 at 14:00 Enoxaparin Sodium (Lovenox) 40 mg DAILY SC Last administered on 01/20/17 09:11 ; Admin Dose 40 MG; Start 01/20/17 at 09:00 CAITLIN LUND Jan 20, 2017 13:45
[2017-01-20 16:20] LABS: ADD UMIC YES; UR BILIRUBIN (Dip) NEGATIVE (NEGATIVE); UR BLOOD (Dip) 3+ (NEGATIVE); UR CLARITY CLEAR (CLEAR); UR COLOR LT. YELLOW (YELLOW); UR GLUCOSE (Dip) NEGATIVE (NEGATIVE); UR KETONES (Dip) NEGATIVE (NEGATIVE); UR LEUKOCYTE ESTERASE (Dip) TRACE (NEGATIVE); UR NITRITE (Dip) NEGATIVE (NEGATIVE); UR TOTAL PROTEIN (Dip) NEGATIVE (NEGATIVE); UR UROBILINOGEN (Dip) 0.2 E.U./dL (0.1-1.0)
[2017-01-20 16:37] LABS: URINE RBCS 25-50 /HPF (0)
--- NOTE | 2017-01-20 19:17 | PN ---
Date/Time of Note Date/Time of Note DATE: 01/20/17 TIME: 19:12 Assessment/Plan VTE Prophylaxis VTE Prophylaxis Intervention: SCD's Lines/Catheters IV [facility]ter [facility]from [facility]): [facility] Urinary Cath still in place: Yes Reason Cath still needed: urinary retention Assessment/Plan Assessment/Plan - Urinary retention, status post Webb catheter, Dr. Parisi is asked to see patient in urology consultation. - UTI per UA, obtain urine culture. - Systemic inflammatory response syndrome with leukocytosis, will obtain blood culture chest x-ray start broad-spectrum antibiotics. -Obstructive pulmonary disease -Peripheral vascular disease with history of stent placement in the lower extremity -Coronary artery disease, history of stent placement, continue aspirin and Plavix. -Hypertension -Hyperlipidemia, continue statin. 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 Further recommendations based on clinical course. Plan of care discussed with Dr. Longo. Exam/Review of Systems Vital Signs Vitals Vital Signs Date Time Temp Pulse Resp B/P Pulse Ox O2 Delivery O2 Flow Rate FiO2 01/20/17 16:10 97.5 67 20 110/54 99 01/20/17 08:20 Nasal Cannula 3.0 Intake and Output 01/19/17 01/19/17 01/20/17 15:00 23:00 07:00 Intake Total 300 ml 200 ml Output Total 700 ml 500 ml Balance -400 ml -300 ml Exam Constitutional: alert, oriented Head: normocephalic Neck: non-tender, supple Respiratory: normal air movement Cardiovascular: nl pulses Gastrointestinal: distended, soft Extremities: normal pulses Neurological: nl mental status Results Result Diagram: 01/20/17 0950 01/20/17 0950 Results 24 hrs Laboratory Tests Test 01/20/17 09:50 01/20/17 15:05 White Blood Count 14.4 #H Red Blood Count 6.63 H Hemoglobin 12.6 L Hematocrit 44.1 Mean Corpuscular Volume 66.5 L Mean Corpuscular Hemoglobin 19.0 L Mean Corpuscular Hemoglobin Concent 28.6 L Red Cell Distribution Width 16.6 H Platelet Count 264 Mean Platelet Volume 11.0 H Neutrophils % 81.7 H Lymphocytes % 10.5 L Monocytes % 6.9 Eosinophils % 0.0 Basophils % 0.1 Nucleated Red Blood Cells % 0.0 Neutrophils # 11.8 H Lymphocytes # 1.5 Monocytes # 1.0 H Eosinophils # 0.0 Basophils # 0.0 Nucleated Red Blood Cells # 0.0 Sodium Level 129 L Potassium Level 4.6 Chloride Level 90 L Carbon Dioxide Level 32 H Anion Gap 12 Blood Urea Nitrogen 9 Creatinine 0.56 L Glucose Level 172 Calcium Level 9.1 Urine Color LT. YELLOW Urine Clarity CLEAR Urine pH 6.0 Urine Specific [place] <=1.005 L Urine Ketones NEGATIVE Urine Nitrite NEGATIVE Urine Bilirubin NEGATIVE Urine Urobilinogen 0.2 E.U./dL Urine Leukocyte Esterase TRACE H Urine Microscopic RBC 25-50 Urine Microscopic WBC 0-2 Urine Hemoglobin 3+ H Urine Glucose NEGATIVE Urine Total Protein NEGATIVE Medications Medications Current Medications Albuterol (Ventolin Hfa) 2 puff BID PRN INH SHORTNESS OF BREATH; Start at 14:00 Aspirin (Halfprin) 81 mg DAILY PO Last administered on 01/20/17 09:09; Admin Dose 81 MG; Start 01/20/17 at 09:00 Atorvastatin Calcium (Lipitor) 80 mg HS PO Last administered on 01/19/17 21:53 ; Admin Dose 80 MG; Start 01/19/17 at 21:00 Carvedilol (Coreg) 3.125 mg BID PO Last administered on 01/20/17 09:09; Admin Dose 3.125 MG; Start 01/19/17 at 21:00 Clopidogrel Bisulfate (plaVIX) 75 mg DAILY PO Last administered on 01/20/17 09 :09; Admin Dose 75 MG; Start 01/20/17 at 09:00 Enalapril Maleate (Vasotec) 5 mg DAILY PO Last administered on 01/20/17 09:09 ; Admin Dose 5 MG; Start 01/20/17 at 09:00 Famotidine (Pepcid) 20 mg DAILY PO Last administered on 01/20/17 09:09; Admin Dose 20 MG; Start 01/20/17 at 09:00 Furosemide (Lasix) 20 mg DAILY PO Last administered on 01/20/17 09:09; Admin Dose 20 MG; Start 01/20/17 at 09:00 Nitroglycerin (Nitroglycerin (Sl Tab) 0.4 Mg) 1 tab [id number] PRN SL CHEST PAIN ; Start 01/19/17 at 14:00 Pyridoxine HCl (Vitamin B6) 25 mg DAILY PO Last administered on 01/20/17 09:09 ; Admin Dose 25 MG; Start 01/20/17 at 09:00 Trihexyphenidyl HCl (Artane) 5 mg BID PO Last administered on 01/20/17 09:08; Admin Dose 5 MG; Start 01/19/17 at 21:00 Isoniazid (Isoniazid) 300 mg DAILY PO Last administered on 01/20/17 09:08; Admin Dose 300 MG; Start 01/19/17 at 14:00 Enoxaparin Sodium (Lovenox) 40 mg DAILY SC Last administered on 01/20/17 09:11 ; Admin Dose 40 MG; Start 01/20/17 at 09:00 DEANDRA FERNANDEZ Jan 20, 2017 19:17
[2017-01-20] MEDS: ATORVASTATIN 80 MG TAB PO SCH (21:41)
[2017-01-20] MEDS: CEFTRIAXONE 1 GM/50 ML (PMX) 50 ML IVPB SCH (21:41)
--- NOTE | 2017-01-20 22:04 | CONS ---
Date/Time of Note Date/Time of Note DATE: 01/20/17 TIME: 22:02 Assessment/Plan Assessment/Plan Additional Assessment/Plan IMPRESSION: 1. Schizophrenia. 2. Shortness of breath.better 3. Chronic obstructive pulmonary disease. 4. A stent in the lower extremity. 5. Coronary artery disease. 6. Distended urinary bladder. feels good after Foleys catheter insertion Plan continue present care Consultation Date/Type/Reason Admit Date/Time Jan 19, 2017 at 15:37 Initial Consult Date 01/19/17 Type of Consultation: Pulmonary 24 HR Interval Summary Constitutional: improved, no complaints Exam/Review of Systems Vital Signs Vitals Vital Signs Date Time Temp Pulse Resp B/P Pulse Ox O2 Delivery O2 Flow Rate FiO2 01/20/17 20:00 64 01/20/17 19:57 98.1 18 114/61 92 01/20/17 08:20 Nasal Cannula 3.0 Intake and Output 01/19/17 01/19/17 01/20/17 15:00 23:00 07:00 Intake Total 300 ml 200 ml Output Total 700 ml 500 ml Balance -400 ml -300 ml Exam Constitutional: alert, oriented, well developed Psych: nl mood/affect, no complaints Head: atraumatic, normocephalic Eyes: EOMI, PERRL, nl conjunctiva, nl lids, nl sclera ENMT: nl external ears & nose, nl lips & teeth, nl nasal mucosa & septum Neck: non-tender, supple Respiratory: clear to auscultation, normal air movement Cardiovascular: nl pulses, regular rate and rhythm Gastrointestinal: nl liver, spleen, non-tender, soft Musculoskeletal: nl extremities to inspection, nl gait and stance Extremities: normal pulses Neurological: HAND PROFILER II-XII intact, nl mental status, nl speech, nl strength Skin: nl turgor, No rash or lesions Lymph: nl lymph nodes Results Result Diagram: 01/20/17 0950 01/20/17 0950 Results 24 hrs Laboratory Tests Test 01/20/17 09:50 01/20/17 15:05 White Blood Count 14.4 #H Red Blood Count 6.63 H Hemoglobin 12.6 L Hematocrit 44.1 Mean Corpuscular Volume 66.5 L Mean Corpuscular Hemoglobin 19.0 L Mean Corpuscular Hemoglobin Concent 28.6 L Red Cell Distribution Width 16.6 H Platelet Count 264 Mean Platelet Volume 11.0 H Neutrophils % 81.7 H Lymphocytes % 10.5 L Monocytes % 6.9 Eosinophils % 0.0 Basophils % 0.1 Nucleated Red Blood Cells % 0.0 Neutrophils # 11.8 H Lymphocytes # 1.5 Monocytes # 1.0 H Eosinophils # 0.0 Basophils # 0.0 Nucleated Red Blood Cells # 0.0 Sodium Level 129 L Potassium Level 4.6 Chloride Level 90 L Carbon Dioxide Level 32 H Anion Gap 12 Blood Urea Nitrogen 9 Creatinine 0.56 L Glucose Level 172 Calcium Level 9.1 Urine Color LT. YELLOW Urine Clarity CLEAR Urine pH 6.0 Urine Specific [place] <=1.005 L Urine Ketones NEGATIVE Urine Nitrite NEGATIVE Urine Bilirubin NEGATIVE Urine Urobilinogen 0.2 E.U./dL Urine Leukocyte Esterase TRACE H Urine Microscopic RBC 25-50 Urine Microscopic WBC 0-2 Urine Hemoglobin 3+ H Urine Glucose NEGATIVE Urine Total Protein NEGATIVE Medications Medications Current Medications Albuterol (Ventolin Hfa) 2 puff BID PRN INH SHORTNESS OF BREATH; Start at 14:00 Aspirin (Halfprin) 81 mg DAILY PO Last administered on 01/20/17 09:09; Admin Dose 81 MG; Start 01/20/17 at 09:00 Atorvastatin Calcium (Lipitor) 80 mg HS PO Last administered on 01/20/17 21:41 ; Admin Dose 80 MG; Start 01/19/17 at 21:00 Carvedilol (Coreg) 3.125 mg BID PO Last administered on 01/20/17 21:41; Admin Dose 3.125 MG; Start 01/19/17 at 21:00 Clopidogrel Bisulfate (plaVIX) 75 mg DAILY PO Last administered on 01/20/17 09 :09; Admin Dose 75 MG; Start 01/20/17 at 09:00 Enalapril Maleate (Vasotec) 5 mg DAILY PO Last administered on 01/20/17 09:09 ; Admin Dose 5 MG; Start 01/20/17 at 09:00 Famotidine (Pepcid) 20 mg DAILY PO Last administered on 01/20/17 09:09; Admin Dose 20 MG; Start 01/20/17 at 09:00 Furosemide (Lasix) 20 mg DAILY PO Last administered on 01/20/17 09:09; Admin Dose 20 MG; Start 01/20/17 at 09:00 Nitroglycerin (Nitroglycerin (Sl Tab) 0.4 Mg) 1 tab [id number] PRN SL CHEST PAIN ; Start 01/19/17 at 14:00 Pyridoxine HCl (Vitamin B6) 25 mg DAILY PO Last administered on 01/20/17 09:09 ; Admin Dose 25 MG; Start 01/20/17 at 09:00 Trihexyphenidyl HCl (Artane) 5 mg BID PO Last administered on 01/20/17 21:41; Admin Dose 5 MG; Start 01/19/17 at 21:00 Isoniazid (Isoniazid) 300 mg DAILY PO Last administered on 01/20/17 09:08; Admin Dose 300 MG; Start 01/19/17 at 14:00 Enoxaparin Sodium 40 mg 40 mg DAILY SC Last administered on 01/20/17 09:11; Admin Dose 40 MG; Start 01/20/17 at 09:00 Ceftriaxone Sodium (Rocephin) 50 ml @ 100 mls/hr Q24H IVPB Last administered on 01/20/17 21:41; Admin Dose 100 MLS/HR; Start 01/20/17 at 21:00 EDITH HOGAN MD Jan 20, 2017 22:04
[2017-01-21] VITALS (12 sets, daily range): BP systolic 103–150; BP diastolic 60–77; PULSE 56–90; RESP 18–20
[2017-01-21] MEDS: TRIHEXYPHENIDYL 5 MG TAB PO SCH ×2 (08:15→20:45)
[2017-01-21] MEDS: ASPIRIN (EC) 81 MG TAB PO SCH (08:15)
[2017-01-21] MEDS: FAMOTIDINE 20 MG TAB PO SCH (08:15)
[2017-01-21] MEDS: FUROSEMIDE 20 MG TAB PO SCH (08:15)
[2017-01-21] MEDS: PYRIDOXINE 50 MG TAB PO SCH (08:15)
[2017-01-21] MEDS: ISONIAZID 300 MG TAB PO SCH (08:15)
[2017-01-21] MEDS: CLOPIDOGREL 75 MG TAB PO SCH (08:15)
[2017-01-21] MEDS: ENALAPRIL 5 MG TAB PO SCH (08:15)
[2017-01-21] MEDS: ENOXAPARIN 40 MG/0.4 ML SYG SC SCH (08:17)
[2017-01-21 08:35] LABS: ADD SCAN DIFF NO
[2017-01-21 08:49] LABS: BASOPHILS % 0.2 % (0.0-2.0); EOSINOPHILS # 0.1 10^3/ul (0.0-0.5); EOSINOPHILS % 0.6 % (0.0-7.0); HEMATOCRIT 42.6 % (42.0-52.0); HEMOGLOBIN 12.4 g/dl (14.0-18.0); LYMPHOCYTES # 2.7 10^3/ul (0.8-2.9); LYMPHOCYTES % 17.2 % (15.0-51.0); MEAN CORPUSCULAR HEMOGLOBIN 19.3 pg (29.0-33.0); MEAN CORPUSCULAR HGB CONC 29.1 g/dl (32.0-37.0); MEAN CORPUSCULAR VOLUME 66.3 fl (82.0-101.0); MEAN PLATELET VOLUME 10.9 fl (7.4-10.4); MONOCYTE # 1.4 10^3/ul (0.3-0.9); MONOCYTES % 9.3 % (0.0-11.0); NEUTROPHIL # 11.1 10^3/ul (1.6-7.5); NEUTROPHILS % 71.9 % (39.0-77.0); PLATELET COUNT 274 10^3/UL (140-415); RED BLOOD COUNT 6.43 10^6/ul (4.70-6.10); RED CELL DISTRIBUTION WIDTH 16.2 % (11.5-14.5); WHITE BLOOD COUNT 15.5 10^3/ul (4.8-10.8)
--- NOTE | 2017-01-21 08:51 | CONS ---
Date/Time of Note Date/Time of Note DATE: 01/21/17 TIME: 08:47 Assessment/Plan Assessment/Plan Additional Assessment/Plan Assessment/Plan Additional Assessment/Plan IMPRESSION: 1. Schizophrenia. 2. Shortness of breath.better 3. Chronic obstructive pulmonary disease. 4. A stent in the lower extremity. 5. Coronary artery disease. 6. Distended urinary bladder. feels good after Webb catheter insertion 7. Positive Quantiferon blood test Plan continue present care Urology consult pending We will do a liver function test since the patient is on INH. Consultation Date/Type/Reason Admit Date/Time Jan 19, 2017 at 15:37 Initial Consult Date 01/19/17 Type of Consultation: Pulmonary 24 HR Interval Summary Free Text/Dictation Patient feels better and he is in a good spirit now Constitutional: improved Exam/Review of Systems Vital Signs Vitals Vital Signs Date Time Temp Pulse Resp B/P Pulse Ox O2 Delivery O2 Flow Rate FiO2 01/21/17 08:29 70 01/21/17 08:09 98.0 20 103/62 95 01/20/17 21:00 Nasal Cannula 3.0 Intake and Output 01/20/17 01/20/17 01/21/17 15:00 23:00 07:00 Intake Total 1200 ml 200 ml Output Total 1000 ml 1200 ml Balance 200 ml -1000 ml Exam Constitutional: alert, oriented, well developed Psych: nl mood/affect, no complaints Head: atraumatic, normocephalic Eyes: EOMI, PERRL, nl conjunctiva, nl lids, nl sclera ENMT: nl external ears & nose, nl lips & teeth, nl nasal mucosa & septum Neck: non-tender, supple Respiratory: clear to auscultation, normal air movement Cardiovascular: nl pulses, regular rate and rhythm Gastrointestinal: nl liver, spleen, non-tender, soft Musculoskeletal: nl extremities to inspection, nl gait and stance Extremities: normal pulses Neurological: 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, nl mental status, nl speech, nl strength Skin: nl turgor, No rash or lesions Lymph: nl lymph nodes Results Result Diagram: 01/20/17 0950 01/20/17 0950 Results 24 hrs Laboratory Tests Test 01/20/17 09:50 01/20/17 15:05 White Blood Count 14.4 #H Red Blood Count 6.63 H Hemoglobin 12.6 L Hematocrit 44.1 Mean Corpuscular Volume 66.5 L Mean Corpuscular Hemoglobin 19.0 L Mean Corpuscular Hemoglobin Concent 28.6 L Red Cell Distribution Width 16.6 H Platelet Count 264 Mean Platelet Volume 11.0 H Neutrophils % 81.7 H Lymphocytes % 10.5 L Monocytes % 6.9 Eosinophils % 0.0 Basophils % 0.1 Nucleated Red Blood Cells % 0.0 Neutrophils # 11.8 H Lymphocytes # 1.5 Monocytes # 1.0 H Eosinophils # 0.0 Basophils # 0.0 Nucleated Red Blood Cells # 0.0 Sodium Level 129 L Potassium Level 4.6 Chloride Level 90 L Carbon Dioxide Level 32 H Anion Gap 12 Blood Urea Nitrogen 9 Creatinine 0.56 L Glucose Level 172 Calcium Level 9.1 Urine Color LT. YELLOW Urine Clarity CLEAR Urine pH 6.0 Urine Specific [place] <=1.005 L Urine Ketones NEGATIVE Urine Nitrite NEGATIVE Urine Bilirubin NEGATIVE Urine Urobilinogen 0.2 E.U./dL Urine Leukocyte Esterase TRACE H Urine Microscopic RBC 25-50 Urine Microscopic WBC 0-2 Urine Hemoglobin 3+ H Urine Glucose NEGATIVE Urine Total Protein NEGATIVE Medications Medications Current Medications Albuterol (Ventolin Hfa) 2 puff BID PRN INH SHORTNESS OF BREATH; Start at 14:00 Aspirin (Halfprin) 81 mg DAILY PO Last administered on 01/21/17 08:15; Admin Dose 81 MG; Start 01/20/17 at 09:00 Atorvastatin Calcium (Lipitor) 80 mg HS PO Last administered on 01/20/17 21:41 ; Admin Dose 80 MG; Start 01/19/17 at 21:00 Carvedilol (Coreg) 3.125 mg BID PO Last administered on 01/20/17 21:41; Admin Dose 3.125 MG; Start 01/19/17 at 21:00 Clopidogrel Bisulfate (plaVIX) 75 mg DAILY PO Last administered on 01/21/17 08 :15; Admin Dose 75 MG; Start 01/20/17 at 09:00 Enalapril Maleate (Vasotec) 5 mg DAILY PO Last administered on 01/20/17 09:09 ; Admin Dose 5 MG; Start 01/20/17 at 09:00 Famotidine (Pepcid) 20 mg DAILY PO Last administered on 01/21/17 08:15; Admin Dose 20 MG; Start 01/20/17 at 09:00 Furosemide (Lasix) 20 mg DAILY PO Last administered on 01/21/17 08:15; Admin Dose 20 MG; Start 01/20/17 at 09:00 Nitroglycerin (Nitroglycerin (Sl Tab) 0.4 Mg) 1 tab [id number] PRN SL CHEST PAIN ; Start 01/19/17 at 14:00 Pyridoxine HCl (Vitamin B6) 25 mg DAILY PO Last administered on 01/21/17 08:15 ; Admin Dose 25 MG; Start 01/20/17 at 09:00 Trihexyphenidyl HCl (Artane) 5 mg BID PO Last administered on 01/21/17 08:15; Admin Dose 5 MG; Start 01/19/17 at 21:00 Isoniazid (Isoniazid) 300 mg DAILY PO Last administered on 01/21/17 08:15; Admin Dose 300 MG; Start 01/19/17 at 14:00 Enoxaparin Sodium 40 mg 40 mg DAILY SC Last administered on 01/21/17 08:17; Admin Dose 40 MG; Start 01/20/17 at 09:00 Ceftriaxone Sodium (Rocephin) 50 ml @ 100 mls/hr Q24H IVPB Last administered on 01/20/17 21:41; Admin Dose 100 MLS/HR; Start 01/20/17 at 21:00 EDITH HOGAN MD Jan 21, 2017 08:51
[2017-01-21 09:00] LABS: CALCIUM 9.2 mg/dl (8.4-10.2); CREATININE 0.61 mg/dl (0.61-1.24); POTASSIUM 4.7 mmol/L (3.5-5.1)
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
--- NOTE | 2017-01-21 14:23 | PN ---
Date/Time of Note Date/Time of Note DATE: 01/21/17 TIME: 14:18 Assessment/Plan VTE Prophylaxis VTE Prophylaxis Intervention: SCD's Lines/Catheters [facility] Saline Lock Urinary Cath still in place: No Assessment/Plan Chief Complaint/Hosp Course Patient went to CT of the abdomen, no acute events reported. Patient was increased leukocytosis however no fever, urine and blood cultures ordered yesterday. Assessment/Plan - Leukocytosis, follow-up and urine and blood cultures. - Urinary retention, Dr. Parisi is following in urology consultation. - UTI per UA, obtain urine culture. - Systemic inflammatory response syndrome with leukocytosis, will obtain blood culture chest x-ray start broad-spectrum antibiotics. -Obstructive pulmonary disease -Peripheral vascular disease with history of stent placement in the lower extremity -Coronary artery disease, history of stent placement, continue aspirin and Plavix. -Hypertension -Hyperlipidemia, continue statin. 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 Further recommendations based on clinical course. Plan of care discussed with Dr. Longo. Problems: Exam/Review of Systems Vital Signs Vitals Vital Signs Date Time Temp Pulse Resp B/P Pulse Ox O2 Delivery O2 Flow Rate FiO2 01/21/17 12:33 90 01/21/17 11:36 98.0 18 119/72 92 01/21/17 08:00 Nasal Cannula 2.0 Intake and Output 01/20/17 01/20/17 01/21/17 15:00 23:00 07:00 Intake Total 1200 ml 200 ml Output Total 1000 ml 1200 ml Balance 200 ml -1000 ml Results Result Diagram: 01/21/17 0757 01/21/17 0757 Results 24 hrs Laboratory Tests Test 01/20/17 15:05 01/21/17 07:55 01/21/17 07:57 Urine Color LT. YELLOW Urine Clarity CLEAR Urine pH 6.0 Urine Specific [place] <=1.005 L Urine Ketones NEGATIVE Urine Nitrite NEGATIVE Urine Bilirubin NEGATIVE Urine Urobilinogen 0.2 E.U./dL Urine Leukocyte Esterase TRACE H Urine Microscopic RBC 25-50 Urine Microscopic WBC 0-2 Urine Hemoglobin 3+ H Urine Glucose NEGATIVE Urine Total Protein NEGATIVE Prostate Specific Antigen 0.4 White Blood Count 15.5 H Red Blood Count 6.43 H Hemoglobin 12.4 L Hematocrit 42.6 Mean Corpuscular Volume 66.3 L Mean Corpuscular Hemoglobin 19.3 L Mean Corpuscular Hemoglobin Concent 29.1 L Red Cell Distribution Width 16.2 H Platelet Count 274 Mean Platelet Volume 10.9 H Neutrophils % 71.9 Lymphocytes % 17.2 Monocytes % 9.3 Eosinophils % 0.6 Basophils % 0.2 Nucleated Red Blood Cells % 0.0 Neutrophils # 11.1 H Lymphocytes # 2.7 Monocytes # 1.4 H Eosinophils # 0.1 Basophils # 0.0 Nucleated Red Blood Cells # 0.0 Sodium Level 137 Potassium Level 4.7 Chloride Level 93 L Carbon Dioxide Level 37 H Anion Gap 12 Blood Urea Nitrogen 13 Creatinine 0.61 Glucose Level 90 # Calcium Level 9.2 Medications Medications Current Medications Albuterol (Ventolin Hfa) 2 puff BID PRN INH SHORTNESS OF BREATH; Start at 14:00 Aspirin (Halfprin) 81 mg DAILY PO Last administered on 01/21/17 08:15; Admin Dose 81 MG; Start 01/20/17 at 09:00 Atorvastatin Calcium (Lipitor) 80 mg HS PO Last administered on 01/20/17 21:41 ; Admin Dose 80 MG; Start 01/19/17 at 21:00 Carvedilol (Coreg) 3.125 mg BID PO Last administered on 01/20/17 21:41; Admin Dose 3.125 MG; Start 01/19/17 at 21:00 Clopidogrel Bisulfate (plaVIX) 75 mg DAILY PO Last administered on 01/21/17 08 :15; Admin Dose 75 MG; Start 01/20/17 at 09:00 Enalapril Maleate (Vasotec) 5 mg DAILY PO Last administered on 01/20/17 09:09 ; Admin Dose 5 MG; Start 01/20/17 at 09:00 Famotidine (Pepcid) 20 mg DAILY PO Last administered on 01/21/17 08:15; Admin Dose 20 MG; Start 01/20/17 at 09:00 Furosemide (Lasix) 20 mg DAILY PO Last administered on 01/21/17 08:15; Admin Dose 20 MG; Start 01/20/17 at 09:00 Nitroglycerin (Nitroglycerin (Sl Tab) 0.4 Mg) 1 tab [id number] PRN SL CHEST PAIN ; Start 01/19/17 at 14:00 Pyridoxine HCl (Vitamin B6) 25 mg DAILY PO Last administered on 01/21/17 08:15 ; Admin Dose 25 MG; Start 01/20/17 at 09:00 Trihexyphenidyl HCl (Artane) 5 mg BID PO Last administered on 01/21/17 08:15; Admin Dose 5 MG; Start 01/19/17 at 21:00 Isoniazid (Isoniazid) 300 mg DAILY PO Last administered on 01/21/17 08:15; Admin Dose 300 MG; Start 01/19/17 at 14:00 Enoxaparin Sodium 40 mg 40 mg DAILY SC Last administered on 01/21/17 08:17; Admin Dose 40 MG; Start 01/20/17 at 09:00 Ceftriaxone Sodium (Rocephin) 50 ml @ 100 mls/hr Q24H IVPB Last administered on 01/20/17 21:41; Admin Dose 100 MLS/HR; Start 01/20/17 at 21:00 DEANDRA FERNANDEZ Jan 21, 2017 14:23
--- NOTE | 2017-01-21 14:54 | RADRPT ---
PROCEDURE: CT Abdomen and Pelvis without contrast. CLINICAL INDICATION: Abdominal distension TECHNIQUE: CT scan of the abdomen and pelvis without contrast was performed on a multidetector hig h-resolution CT scanner. The patient was scanned without intravenous contrast. Coronal and sagittal reformatted images were obtained from the axial source images. Images were reviewed on a high-resol [employer] PACS workstation. The total exam CTDI equals 14.21 mGy and the total exam DLP equals 901.19 mG y-cm. One or more of the following dose reduction techniques were used: Automated exposure control. Adjustment of the mA and/or kV according to patient size. Use of iterative reconstruction technique. COMPARISON: None FINDINGS: CT abdomen: The lung bases are remarkable for right basilar atelectasis. The heart size is normal, without radha cardial thickening or effusion. The liver is normal in size and density without focal mass or intra hepatic biliary dilatation. The spleen is normal in size and homogeneous in density. The stomach i s partially collapsed, but is grossly unremarkable. The pancreas as visualized is normal. The gall bladder is absent. There is no evidence for biliary dilatation. The adrenal glands are symmetric an d normal. The kidneys are symmetrically unremarkable as well. No renal calculus or obstructive uro daniel or mass lesion is seen. The aorta is of normal caliber. Aortic vascular calcifications are present. There is no retroperit ramírez lymphadenopathy. The twan hepatis region is clear. The bowel and mesentery, as visualized, are equally unremarkable. There is a small fat containing periumbilical hernia. There is a small hia elvira hernia. CT pelvis: The small bowel loops situated within the pelvis are unremarkable. There is a small fat containing l eft inguinal hernia. The pelvic organs are normal. The pelvic sidewalls and inguinal regions are cl ear. The sigmoid colon and rectum are unremarkable. No mass, lymphadenopathy, or free fluid is see n. No acute inflammation is seen. The surrounding osseous structures are remarkable for degenerati ve spondylosis of the spine. No osteolytic or osteoblastic lesion is detected. IMPRESSION: 1. No mass, lymphadenopathy, or focal acute inflammatory process is identified. 2. Small fat containing periumbilical and left inguinal hernia. 3. Mild hiatal hernia. 4. Mild aortoiliac atherosclerosis. RPTAT: BB .Del Feliciano MD, MD Date Time Electronically viewed and signed by .Del Feliciano MD, MD on 01/21/2017 14:54 .O/
[2017-01-21] MEDS: ATORVASTATIN 80 MG TAB PO SCH (20:45)
[2017-01-21] MEDS: CEFTRIAXONE 1 GM/50 ML (PMX) 50 ML IVPB SCH (20:46)
[2017-01-22] VITALS (12 sets, daily range): BP systolic 106–123; BP diastolic 59–70; PULSE 67–78; RESP 18–20
[2017-01-22 07:41] LABS: ADD SCAN DIFF NO
[2017-01-22 07:44] LABS: ABNORMAL IP MESSAGE 1; BASOPHIL # 0.1 10^3/ul (0.0-0.1); BASOPHILS % 0.5 % (0.0-2.0); EOSINOPHILS # 0.4 10^3/ul (0.0-0.5); EOSINOPHILS % 2.7 % (0.0-7.0); HEMATOCRIT 45.4 % (42.0-52.0); HEMOGLOBIN 13.2 g/dl (14.0-18.0); LYMPHOCYTES # 2.8 10^3/ul (0.8-2.9); LYMPHOCYTES % 21.4 % (15.0-51.0); MEAN CORPUSCULAR HEMOGLOBIN 19.4 pg (29.0-33.0); MEAN CORPUSCULAR HGB CONC 29.1 g/dl (32.0-37.0); MEAN CORPUSCULAR VOLUME 66.6 fl (82.0-101.0); MEAN PLATELET VOLUME 10.6 fl (7.4-10.4); MONOCYTE # 1.7 10^3/ul (0.3-0.9); NEUTROPHIL # 7.9 10^3/ul (1.6-7.5); NEUTROPHILS % 61.4 % (39.0-77.0); PLATELET COUNT 292 10^3/UL (140-415); RED BLOOD COUNT 6.82 10^6/ul (4.70-6.10); WHITE BLOOD COUNT 12.9 10^3/ul (4.8-10.8)
[2017-01-22 08:12] LABS: ALBUMIN 3.9 g/dl (3.3-4.9); ALBUMIN/GLOBULIN RATIO 1.44; BILIRUBIN,INDIRECT 0.3 mg/dl (0-1.1); BILIRUBIN,TOTAL 0.3 mg/dl (0.2-1.3); CALCIUM 8.8 mg/dl (8.4-10.2); CREATININE 0.65 mg/dl (0.61-1.24); POTASSIUM 4.8 mmol/L (3.5-5.1); TOTAL PROTEIN 6.6 g/dl (6.1-8.1)
[2017-01-22] MEDS: ENOXAPARIN 40 MG/0.4 ML SYG SC SCH (09:40)
[2017-01-22] MEDS: FUROSEMIDE 20 MG TAB PO SCH (09:40)
[2017-01-22] MEDS: ASPIRIN (EC) 81 MG TAB PO SCH (09:41)
[2017-01-22] MEDS: TRIHEXYPHENIDYL 5 MG TAB PO SCH ×2 (09:41→21:10)
[2017-01-22] MEDS: PYRIDOXINE 50 MG TAB PO SCH (09:41)
[2017-01-22] MEDS: ENALAPRIL 5 MG TAB PO SCH (09:45)
[2017-01-22] MEDS: FAMOTIDINE 20 MG TAB PO SCH (09:46)
[2017-01-22] MEDS: ISONIAZID 300 MG TAB PO SCH (09:46)
[2017-01-22] MEDS: CLOPIDOGREL 75 MG TAB PO SCH (09:46)
--- NOTE | 2017-01-22 12:10 | PN ---
DATE: 01/22/2017 SUBJECTIVE: Abdominal distention. The patient was thought to have urinary retention yesterday; how ever, after I examined him it did not look like he had urinary retention, so I had the catheter juve martin and the patient has been voiding since. He also did have a CT scan of the abdomen and pelvis ye sterday. The patient states today that he is comfortable, but the abdomen is still a little distend ed. OBJECTIVE: VITAL SIGNS: His temperature is 98.0, pulse 75, respirations 20, blood pressure 123/69. ABDOMEN: A little distended mostly in the upper abdomen. The lower abdomen is not distended and th ere is no tenderness. LABORATORY DATA: CBC today shows a white count of 12.9, hemoglobin 13.2, hematocrit 45.4, platelet count 292,000. BUN is 13, creatinine 0.65. Electrolytes: Sodium 138, potassium 4.8, chloride 93, CO2 of 34. Blood cultures have been negative. Urine culture is still in process. The CT scan of the abdomen and pelvis that was done yesterday was reported as no mass, no lymphadeno daniel or focal acute inflammatory process in the abdomen or pelvis. Small fat-containing periumbili percy and left inguinal hernias. Mild hiatal hernia. Mild aortoiliac atherosclerosis. IMPRESSION: From a urological standpoint, the patient is voiding well. There is no urinary retenti on and no urological problem. Therefore, from a urological standpoint, we will just observe. Dictated By: ALEJANDRO CLAYTON/COLEMAN Conf#: [id number] DID#: [id number]
--- NOTE | 2017-01-22 17:53 | PN ---
Date/Time of Note Date/Time of Note DATE: 01/22/17 TIME: 17:50 Assessment/Plan VTE Prophylaxis VTE Prophylaxis Intervention: SCD's Lines/Catheters IV [facility] Type (from [facility] Saline Lock Urinary Cath still in place: No Assessment/Plan Chief Complaint/Hosp Course Patient remains hemodynamically stable, able to void, white blood cells are trending down. Assessment/Plan - Leukocytosis, follow-up and urine and blood cultures. - Urinary retention, Dr. Parisi is following in urology consultation. - UTI per UA, obtain urine culture. Continue Rocephin. - Systemic inflammatory response syndrome with leukocytosis, will obtain blood culture chest x-ray start broad-spectrum antibiotics. -Obstructive pulmonary disease -Peripheral vascular disease with history of stent placement in the lower extremity -Coronary artery disease, history of stent placement, continue aspirin and Plavix. -Hypertension -Hyperlipidemia, continue statin. 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 Further recommendations based on clinical course. Plan of care discussed with Dr. Longo. Problems: Exam/Review of Systems Vital Signs Vitals Vital Signs Date Time Temp Pulse Resp B/P Pulse Ox O2 Delivery O2 Flow Rate FiO2 01/22/17 16:16 67 01/22/17 15:49 98.0 20 112/67 98 01/22/17 11:59 Nasal Cannula 2.0 Intake and Output 01/21/17 01/21/17 01/22/17 15:00 23:00 07:00 Intake Total 50 ml 600 ml 500 ml Output Total 1925 ml 1000 ml Balance 50 ml -1325 ml -500 ml Exam Constitutional: alert, oriented Head: normocephalic Neck: non-tender, supple Respiratory: normal air movement Cardiovascular: nl pulses Gastrointestinal: distended, soft Extremities: normal pulses Neurological: nl mental status Results Result Diagram: 01/22/17 0716 01/22/17 0716 Results 24 hrs Laboratory Tests Test 01/22/17 07:16 White Blood Count 12.9 H Red Blood Count 6.82 H Hemoglobin 13.2 L Hematocrit 45.4 Mean Corpuscular Volume 66.6 L Mean Corpuscular Hemoglobin 19.4 L Mean Corpuscular Hemoglobin Concent 29.1 L Red Cell Distribution Width 17.0 H Platelet Count 292 Mean Platelet Volume 10.6 H Neutrophils % 61.4 Lymphocytes % 21.4 Monocytes % 13.0 H Eosinophils % 2.7 Basophils % 0.5 Nucleated Red Blood Cells % 0.0 Neutrophils # 7.9 H Lymphocytes # 2.8 Monocytes # 1.7 H Eosinophils # 0.4 Basophils # 0.1 Nucleated Red Blood Cells # 0.0 Sodium Level 138 Potassium Level 4.8 Chloride Level 93 L Carbon Dioxide Level 34 H Anion Gap 16 Blood Urea Nitrogen 13 Creatinine 0.65 Glucose Level 74 Calcium Level 8.8 Total Bilirubin 0.3 Direct Bilirubin 0.00 Indirect Bilirubin 0.3 Aspartate Amino Transf (AST/SGOT) 36 Alanine Aminotransferase (ALT/SGPT) 29 Alkaline Phosphatase 65 Total Protein 6.6 Albumin 3.9 Globulin 2.70 Albumin/Globulin Ratio 1.44 Medications Medications Current Medications Albuterol (Ventolin Hfa) 2 puff BID PRN INH SHORTNESS OF BREATH; Start at 14:00 Aspirin (Halfprin) 81 mg DAILY PO Last administered on 01/22/17 09:41; Admin Dose 81 MG; Start 01/20/17 at 09:00 Atorvastatin Calcium (Lipitor) 80 mg HS PO Last administered on 01/21/17 20:45 ; Admin Dose 80 MG; Start 01/19/17 at 21:00 Carvedilol (Coreg) 3.125 mg BID PO Last administered on 01/22/17 09:46; Admin Dose 3.125 MG; Start 01/19/17 at 21:00 Clopidogrel Bisulfate (plaVIX) 75 mg DAILY PO Last administered on 01/22/17 09 :46; Admin Dose 75 MG; Start 01/20/17 at 09:00 Enalapril Maleate (Vasotec) 5 mg DAILY PO Last administered on 01/22/17 09:45 ; Admin Dose 5 MG; Start 01/20/17 at 09:00 Famotidine (Pepcid) 20 mg DAILY PO Last administered on 01/22/17 09:46; Admin Dose 20 MG; Start 01/20/17 at 09:00 Furosemide (Lasix) 20 mg DAILY PO Last administered on 01/22/17 09:40; Admin Dose 20 MG; Start 01/20/17 at 09:00 Nitroglycerin (Nitroglycerin (Sl Tab) 0.4 Mg) 1 tab [id number] PRN SL CHEST PAIN ; Start 01/19/17 at 14:00 Pyridoxine HCl (Vitamin B6) 25 mg DAILY PO Last administered on 01/22/17 09:41 ; Admin Dose 25 MG; Start 01/20/17 at 09:00 Trihexyphenidyl HCl (Artane) 5 mg BID PO Last administered on 01/22/17 09:41; Admin Dose 5 MG; Start 01/19/17 at 21:00 Isoniazid (Isoniazid) 300 mg DAILY PO Last administered on 01/22/17 09:46; Admin Dose 300 MG; Start 01/19/17 at 14:00 Enoxaparin Sodium 40 mg 40 mg DAILY SC Last administered on 01/22/17 09:40; Admin Dose 40 MG; Start 01/20/17 at 09:00 Ceftriaxone Sodium (Rocephin) 50 ml @ 100 mls/hr Q24H IVPB Last administered on 01/21/17 20:46; Admin Dose 100 MLS/HR; Start 01/20/17 at 21:00 DEANDRA FERNANDEZ Jan 22, 2017 17:52
--- NOTE | 2017-01-22 19:40 | CONS ---
Date/Time of Note Date/Time of Note DATE: 01/22/17 TIME: 19:38 Assessment/Plan Assessment/Plan Additional Assessment/Plan Additional Assessment/Plan IMPRESSION: 1. Schizophrenia. 2. Shortness of breath.better 3. Chronic obstructive pulmonary disease. 4. A stent in the lower extremity. 5. Coronary artery disease. 6. Distended urinary bladder. feels good after Webb catheter insertion 7. Positive Quantiferon blood test Plan continue present care Urology consult noted CT abdomen negative Consultation Date/Type/Reason Admit Date/Time Jan 21, 2017 at 07:17 Initial Consult Date 01/19/17 Type of Consultation: Pulmonary 24 HR Interval Summary Constitutional: improved, no complaints Exam/Review of Systems Vital Signs Vitals Vital Signs Date Time Temp Pulse Resp B/P Pulse Ox O2 Delivery O2 Flow Rate FiO2 01/22/17 16:16 67 01/22/17 15:49 98.0 20 112/67 98 01/22/17 11:59 Nasal Cannula 2.0 Intake and Output 01/21/17 01/21/17 01/22/17 15:00 23:00 07:00 Intake Total 50 ml 600 ml 500 ml Output Total 1925 ml 1000 ml Balance 50 ml -1325 ml -500 ml Exam Constitutional: alert, oriented, well developed Psych: nl mood/affect, no complaints Head: atraumatic, normocephalic Eyes: EOMI, PERRL, nl conjunctiva, nl lids, nl sclera ENMT: nl external ears & nose, nl lips & teeth, nl nasal mucosa & septum Neck: non-tender, supple Respiratory: clear to auscultation, normal air movement Cardiovascular: nl pulses, regular rate and rhythm Gastrointestinal: nl liver, spleen, non-tender, soft Musculoskeletal: nl extremities to inspection, nl gait and stance Extremities: normal pulses Neurological: CONTACT OFFICER II-XII intact, nl mental status, nl speech, nl strength Skin: nl turgor, No rash or lesions Lymph: nl lymph nodes Results Result Diagram: 01/22/17 0716 01/22/17 0716 Results 24 hrs Laboratory Tests Test 01/22/17 07:16 White Blood Count 12.9 H Red Blood Count 6.82 H Hemoglobin 13.2 L Hematocrit 45.4 Mean Corpuscular Volume 66.6 L Mean Corpuscular Hemoglobin 19.4 L Mean Corpuscular Hemoglobin Concent 29.1 L Red Cell Distribution Width 17.0 H Platelet Count 292 Mean Platelet Volume 10.6 H Neutrophils % 61.4 Lymphocytes % 21.4 Monocytes % 13.0 H Eosinophils % 2.7 Basophils % 0.5 Nucleated Red Blood Cells % 0.0 Neutrophils # 7.9 H Lymphocytes # 2.8 Monocytes # 1.7 H Eosinophils # 0.4 Basophils # 0.1 Nucleated Red Blood Cells # 0.0 Sodium Level 138 Potassium Level 4.8 Chloride Level 93 L Carbon Dioxide Level 34 H Anion Gap 16 Blood Urea Nitrogen 13 Creatinine 0.65 Glucose Level 74 Calcium Level 8.8 Total Bilirubin 0.3 Direct Bilirubin 0.00 Indirect Bilirubin 0.3 Aspartate Amino Transf (AST/SGOT) 36 Alanine Aminotransferase (ALT/SGPT) 29 Alkaline Phosphatase 65 Total Protein 6.6 Albumin 3.9 Globulin 2.70 Albumin/Globulin Ratio 1.44 Medications Medications Current Medications Albuterol (Ventolin Hfa) 2 puff BID PRN INH SHORTNESS OF BREATH; Start at 14:00 Aspirin (Halfprin) 81 mg DAILY PO Last administered on 01/22/17 09:41; Admin Dose 81 MG; Start 01/20/17 at 09:00 Atorvastatin Calcium (Lipitor) 80 mg HS PO Last administered on 01/21/17 20:45 ; Admin Dose 80 MG; Start 01/19/17 at 21:00 Carvedilol (Coreg) 3.125 mg BID PO Last administered on 01/22/17 09:46; Admin Dose 3.125 MG; Start 01/19/17 at 21:00 Clopidogrel Bisulfate (plaVIX) 75 mg DAILY PO Last administered on 01/22/17 09 :46; Admin Dose 75 MG; Start 01/20/17 at 09:00 Enalapril Maleate (Vasotec) 5 mg DAILY PO Last administered on 01/22/17 09:45 ; Admin Dose 5 MG; Start 01/20/17 at 09:00 Famotidine (Pepcid) 20 mg DAILY PO Last administered on 01/22/17 09:46; Admin Dose 20 MG; Start 01/20/17 at 09:00 Furosemide (Lasix) 20 mg DAILY PO Last administered on 01/22/17 09:40; Admin Dose 20 MG; Start 01/20/17 at 09:00 Nitroglycerin (Nitroglycerin (Sl Tab) 0.4 Mg) 1 tab [id number] PRN SL CHEST PAIN ; Start 01/19/17 at 14:00 Pyridoxine HCl (Vitamin B6) 25 mg DAILY PO Last administered on 01/22/17 09:41 ; Admin Dose 25 MG; Start 01/20/17 at 09:00 Trihexyphenidyl HCl (Artane) 5 mg BID PO Last administered on 01/22/17 09:41; Admin Dose 5 MG; Start 01/19/17 at 21:00 Isoniazid (Isoniazid) 300 mg DAILY PO Last administered on 01/22/17 09:46; Admin Dose 300 MG; Start 01/19/17 at 14:00 Enoxaparin Sodium 40 mg 40 mg DAILY SC Last administered on 01/22/17 09:40; Admin Dose 40 MG; Start 01/20/17 at 09:00 Ceftriaxone Sodium (Rocephin) 50 ml @ 100 mls/hr Q24H IVPB Last administered on 01/21/17 20:46; Admin Dose 100 MLS/HR; Start 01/20/17 at 21:00 EDITH HOGAN MD Jan 22, 2017 19:40
[2017-01-22] MEDS: ATORVASTATIN 80 MG TAB PO SCH (21:09)
[2017-01-22] MEDS: CEFTRIAXONE 1 GM/50 ML (PMX) 50 ML IVPB SCH (21:09)
[2017-01-23] VITALS (11 sets, daily range): BP systolic 96–108; BP diastolic 50–61; PULSE 75–79; RESP 18
[2017-01-23 08:00] LABS: ADD SCAN DIFF NO
[2017-01-23 08:13] LABS: ABNORMAL IP MESSAGE 1; BASOPHIL # 0.1 10^3/ul (0.0-0.1); BASOPHILS % 0.7 % (0.0-2.0); EOSINOPHILS # 0.4 10^3/ul (0.0-0.5); EOSINOPHILS % 3.5 % (0.0-7.0); HEMATOCRIT 47.7 % (42.0-52.0); LYMPHOCYTES % 16.2 % (15.0-51.0); MEAN CORPUSCULAR HEMOGLOBIN 19.5 pg (29.0-33.0); MEAN CORPUSCULAR HGB CONC 29.4 g/dl (32.0-37.0); MEAN CORPUSCULAR VOLUME 66.4 fl (82.0-101.0); MONOCYTE # 1.6 10^3/ul (0.3-0.9); MONOCYTES % 12.8 % (0.0-11.0); NEUTROPHILS % 65.7 % (39.0-77.0); PLATELET COUNT 282 10^3/UL (140-415); RED BLOOD COUNT 7.18 10^6/ul (4.70-6.10); RED CELL DISTRIBUTION WIDTH 16.3 % (11.5-14.5); WHITE BLOOD COUNT 12.2 10^3/ul (4.8-10.8)
[2017-01-23] MEDS: CLOPIDOGREL 75 MG TAB PO SCH (08:19)
[2017-01-23] MEDS: PYRIDOXINE 50 MG TAB PO SCH (08:19)
[2017-01-23] MEDS: FUROSEMIDE 20 MG TAB PO SCH (08:19)
[2017-01-23] MEDS: TRIHEXYPHENIDYL 5 MG TAB PO SCH ×2 (08:19→21:08)
[2017-01-23] MEDS: ASPIRIN (EC) 81 MG TAB PO SCH (08:19)
[2017-01-23] MEDS: FAMOTIDINE 20 MG TAB PO SCH (08:20)
[2017-01-23] MEDS: ISONIAZID 300 MG TAB PO SCH (08:20)
[2017-01-23] MEDS: ENOXAPARIN 40 MG/0.4 ML SYG SC SCH (08:23)
[2017-01-23] MEDS: ENALAPRIL 5 MG TAB PO SCH (08:23)
[2017-01-23 09:32] LABS: CALCIUM 9.1 mg/dl (8.4-10.2); CREATININE 0.6 mg/dl (0.61-1.24); POTASSIUM 4.2 mmol/L (3.5-5.1)
--- NOTE | 2017-01-23 18:09 | PN ---
DATE: 01/23/2017 SUBJECTIVE: Abdominal distention. The patient, however, is comfortable and has no pain, no nausea or vomiting. There was a question of urinary retention and he had a Webb catheter that was removed , and the patient has been voiding well and there is no retention presently. OBJECTIVE: VITAL SIGNS: His temperature is 97.8, pulse 76, respiration 18, blood pressure 96/55. ABDOMEN: Still a little bit distended in the upper part of the abdomen. He does have umbilical her kunal. No suprapubic tenderness. LABORATORY DATA: His CBC shows a white count of 12.2, hemoglobin 14.0, hematocrit is 47.7. BUN is 11, creatinine 0.6, sodium 130, potassium 4.2, chloride 89, CO2 31. PSA 0.4. The urine culture kristal wed mixed gram-positive organism and this is most likely a contaminant and especially that is less t long 10,000 colonies per mL. IMPRESSION: Abdominal pain. From a urological standpoint, it does not appear that he has any urinary retention and there are no kidney stones. Therefore, recommendation from a urological standpoint is to observe. He does have leukocytosis, but he is already on ceftriaxone antibiotic in case of any infection. Dictated By: ALEJANDRO CLAYTON/COLEMAN Conf#: [id number] DID#: [id number]
--- NOTE | 2017-01-23 20:48 | PN ---
Date/Time of Note Date/Time of Note DATE: 01/23/17 TIME: 20:44 Assessment/Plan Lines/Catheters IV Catheter Type (from [facility]): Saline Lock Urinary Cath still in place: No Assessment/Plan Assessment/Plan - Leukocytosis, urine-MIXED GRAM POSITIVE ORGANISMS- <10,000 CFU/ml.blood cultures- no growth after 2 days \ - Urinary retention, Dr. Parisi is following in urology consultation. - UTI per UA, obtain urine culture. Continue Rocephin. - Systemic inflammatory response syndrome with leukocytosis, will obtain blood culture chest x-ray start broad-spectrum antibiotics. -Obstructive pulmonary disease -Peripheral vascular disease with history of stent placement in the lower extremity -Coronary artery disease, history of stent placement, continue aspirin and Plavix. -Hypertension -Hyperlipidemia, continue statin. 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 Further recommendations based on clinical course. Plan of care discussed with Dr. Longo. Subjective 24 Hr Interval Summary Constitutional: no complaints Respiratory: no complaints Cardiovascular: no complaints Gastrointestinal: no complaints Musculoskeletal: no complaints Exam/Review of Systems Vital Signs Vitals Vital Signs Date Time Temp Pulse Resp B/P Pulse Ox O2 Delivery O2 Flow Rate FiO2 01/23/17 20:27 79 01/23/17 15:48 97.8 18 96/55 95 01/23/17 04:00 Nasal Cannula 2.0 Intake and Output 01/22/17 01/22/17 01/23/17 15:00 23:00 07:00 Intake Total 1600 ml 500 ml Output Total 1600 ml 700 ml Balance 0 ml -200 ml Exam Constitutional: alert, well developed Respiratory: clear to auscultation, normal air movement Cardiovascular: nl pulses, regular rate and rhythm Gastrointestinal: non-tender, soft Musculoskeletal: nl extremities to inspection Extremities: normal pulses Neurological: nl speech, other Results Result Diagram: 01/23/17 0701/23/17 07 Results 24 hrs Laboratory Tests Test 01/23/17 07:05 White Blood Count 12.2 H Red Blood Count 7.18 H Hemoglobin 14.0 Hematocrit 47.7 Mean Corpuscular Volume 66.4 L Mean Corpuscular Hemoglobin 19.5 L Mean Corpuscular Hemoglobin Concent 29.4 L Red Cell Distribution Width 16.3 H Platelet Count 282 Mean Platelet Volume 11.0 H Neutrophils % 65.7 Lymphocytes % 16.2 Monocytes % 12.8 H Eosinophils % 3.5 Basophils % 0.7 Nucleated Red Blood Cells % 0.0 Neutrophils # 8.0 H Lymphocytes # 2.0 Monocytes # 1.6 H Eosinophils # 0.4 Basophils # 0.1 Nucleated Red Blood Cells # 0.0 Sodium Level 130 L Potassium Level 4.2 Chloride Level 89 L Carbon Dioxide Level 31 Anion Gap 14 Blood Urea Nitrogen 11 Creatinine 0.60 L Glucose Level 62 #L Calcium Level 9.1 Medications Medications Current Medications Albuterol (Ventolin Hfa) 2 puff BID PRN INH SHORTNESS OF BREATH; Start at 14:00 Aspirin (Halfprin) 81 mg DAILY PO Last administered on 01/23/17 08:19; Admin Dose 81 MG; Start 01/20/17 at 09:00 Atorvastatin Calcium (Lipitor) 80 mg HS PO Last administered on 01/22/17 21:09 ; Admin Dose 80 MG; Start 01/19/17 at 21:00 Carvedilol (Coreg) 3.125 mg BID PO Last administered on 01/23/17 08:20; Admin Dose 3.125 MG; Start 01/19/17 at 21:00 Clopidogrel Bisulfate (plaVIX) 75 mg DAILY PO Last administered on 01/23/17 08 :19; Admin Dose 75 MG; Start 01/20/17 at 09:00 Enalapril Maleate (Vasotec) 5 mg DAILY PO Last administered on 01/22/17 09:45 ; Admin Dose 5 MG; Start 01/20/17 at 09:00 Famotidine (Pepcid) 20 mg DAILY PO Last administered on 01/23/17 08:20; Admin Dose 20 MG; Start 01/20/17 at 09:00 Furosemide (Lasix) 20 mg DAILY PO Last administered on 01/23/17 08:19; Admin Dose 20 MG; Start 01/20/17 at 09:00 Nitroglycerin (Nitroglycerin (Sl Tab) 0.4 Mg) 1 tab [id number] PRN SL CHEST PAIN ; Start 01/19/17 at 14:00 Pyridoxine HCl (Vitamin B6) 25 mg DAILY PO Last administered on 01/23/17 08:19 ; Admin Dose 25 MG; Start 01/20/17 at 09:00 Trihexyphenidyl HCl (Artane) 5 mg BID PO Last administered on 01/23/17 08:19; Admin Dose 5 MG; Start 01/19/17 at 21:00 Isoniazid (Isoniazid) 300 mg DAILY PO Last administered on 01/23/17 08:20; Admin Dose 300 MG; Start 01/19/17 at 14:00 Enoxaparin Sodium 40 mg 40 mg DAILY SC Last administered on 01/23/17 08:23; Admin Dose 40 MG; Start 01/20/17 at 09:00 Ceftriaxone Sodium (Rocephin) 50 ml @ 100 mls/hr Q24H IVPB Last administered on 01/22/17 21:09; Admin Dose 100 MLS/HR; Start 01/20/17 at 21:00 RAMSES LAU Jan 23, 2017 20:48
[2017-01-23] MEDS: ATORVASTATIN 80 MG TAB PO SCH (21:07)
[2017-01-23] MEDS: CEFTRIAXONE 1 GM/50 ML (PMX) 50 ML IVPB SCH (21:08)
[2017-01-24] VITALS (10 sets, daily range): BP systolic 100–128; BP diastolic 52–67; PULSE 64–93; RESP 18–19
[2017-01-24 07:55] LABS: ADD SCAN DIFF NO
[2017-01-24 08:02] LABS: BASOPHIL # 0.1 10^3/ul (0.0-0.1); BASOPHILS % 0.5 % (0.0-2.0); EOSINOPHILS # 0.4 10^3/ul (0.0-0.5); EOSINOPHILS % 4.2 % (0.0-7.0); HEMATOCRIT 44.6 % (42.0-52.0); LYMPHOCYTES # 1.7 10^3/ul (0.8-2.9); LYMPHOCYTES % 18.2 % (15.0-51.0); MEAN CORPUSCULAR HEMOGLOBIN 19.3 pg (29.0-33.0); MEAN CORPUSCULAR HGB CONC 29.1 g/dl (32.0-37.0); MEAN CORPUSCULAR VOLUME 66.1 fl (82.0-101.0); MEAN PLATELET VOLUME 11.3 fl (7.4-10.4); MONOCYTE # 1.2 10^3/ul (0.3-0.9); MONOCYTES % 12.9 % (0.0-11.0); NEUTROPHIL # 5.8 10^3/ul (1.6-7.5); NEUTROPHILS % 63.2 % (39.0-77.0); PLATELET COUNT 254 10^3/UL (140-415); RED BLOOD COUNT 6.75 10^6/ul (4.70-6.10); WHITE BLOOD COUNT 9.1 10^3/ul (4.8-10.8)
[2017-01-24 08:48] LABS: CALCIUM 8.8 mg/dl (8.4-10.2); CREATININE 0.56 mg/dl (0.61-1.24)
[2017-01-24] MEDS: PYRIDOXINE 50 MG TAB PO SCH (09:41)
[2017-01-24] MEDS: ASPIRIN (EC) 81 MG TAB PO SCH (09:41)
[2017-01-24] MEDS: TRIHEXYPHENIDYL 5 MG TAB PO SCH (09:41)
[2017-01-24] MEDS: CLOPIDOGREL 75 MG TAB PO SCH (09:41)
[2017-01-24] MEDS: ISONIAZID 300 MG TAB PO SCH (09:41)
[2017-01-24] MEDS: FUROSEMIDE 20 MG TAB PO SCH (09:42)
[2017-01-24] MEDS: ENALAPRIL 5 MG TAB PO SCH (09:42)
[2017-01-24] MEDS: FAMOTIDINE 20 MG TAB PO SCH (09:42)
[2017-01-24] MEDS: ENOXAPARIN 40 MG/0.4 ML SYG SC SCH (09:45)
[2017-01-24] MEDS ORDERED: CARV3.1260 PO (16:00)
[2017-01-24] MEDS ORDERED: ENAL5TAB PO (16:00)
[2017-01-24] MEDS ORDERED: ATOR80TA75 ORAL (16:00)
[2017-01-24] MEDS ORDERED: LEVO500T72 PO (16:00)
[2017-01-24] MEDS ORDERED: CLOP75TA27 PO (16:00)
[2017-01-24] MEDS ORDERED: FURO20TA3 ORAL (16:00)
[2017-01-24] MEDS ORDERED: ASPI-664 PO (16:00)
== END 2017-01-24 17:10 | disposition home or self-care (01) | DRG 190 ==
LOC: E/R 07:01 → MS4 15:37 → OBSVTOIN 01-21 07:17
PROVIDERS: ADMIT Internal Medicine; ATTEND Internal Medicine
PROC: 0T9B70Z Drainage of Bladder with Drainage Device, Via Natural or Artificial Opening (ICD-10-PCS; principal; 2017-01-19)
DX: J44.1 Chronic obstructive pulmonary disease with (acute) exacerbation (principal); J96.01 Acute respiratory failure with hypoxia; J96.02 Acute respiratory failure with hypercapnia; R18.8 Other ascites; N39.0 Urinary tract infection, site not specified; R65.10 Systemic inflammatory response syndrome (SIRS) of non-infectious origin without acute organ dysfunction; D72.829 Elevated white blood cell count, unspecified; N40.1 Benign prostatic hyperplasia with lower urinary tract symptoms; R33.8 Other retention of urine; R31.29 Other microscopic hematuria; K42.9 Umbilical hernia without obstruction or gangrene; E78.5 Hyperlipidemia, unspecified; F20.9 Schizophrenia, unspecified; I10 Essential (primary) hypertension; I25.10 Atherosclerotic heart disease of native coronary artery without angina pectoris; I73.9 Peripheral vascular disease, unspecified; N32.89 Other specified disorders of bladder; R76.12 Nonspecific reaction to cell mediated immunity measurement of gamma interferon antigen response without active tuberculosis; Z95.828 Presence of other vascular implants and grafts; Z87.891 Personal history of nicotine dependence; Z79.82 Long term (current) use of aspirin; Z79.02 Long term (current) use of antithrombotics/antiplatelets; Z79.01 Long term (current) use of anticoagulants
CPT/HCPCS: 36415; 71010; 74176; 76705; 80048; 80053; 81001; 82803; 83880; 84153; 84154; 84484; 85025; 85610; 85730; 87040; 87086; 93005; 93971; 94640; 94664; 94760; 96374; G0378; J0696; J1100; J1650

== ENCOUNTER 2017-10-01 11:27 | Emergency (ER) | END 2017-10-01 12:16 | disposition home or self-care (01) ==

== ENCOUNTER 2018-02-15 13:21 | Emergency (ER) | END 2018-02-15 16:37 | disposition home or self-care (01) ==

== ENCOUNTER 2018-06-07 18:34 | Inpatient (IN) | END 2018-06-17 14:22 | disposition home health service (06) | DRG 190 ==

== ENCOUNTER 2019-04-08 11:31 | Emergency (ER) | payer BC ==
[~2019-04-08] VITALS: Ht 157.5 cm; Wt 89.0 kg
[~2019-04-08 11:31] MED LIST changes: +ADV25050 INHALATION; +ALBU18HF INHALATION; +AMLO1CAP8 PO; -ASPI-664 PO; +ASPI-817 PO; +ASPI81TA52 PO; +ATOR-2 PO; -ATOR10TA65 PO; -ENAL5TAB PO; +FAMO-96 PO; +FAMO20TA18 PO; +FLUT1AER INHALATION; +FURO20TA3 PO; -ISON300T72 PO; +LOTREL PO; +NAPR-688 PO; -NITR0.4T6 SL; +PRED20TA PO; -Pyridoxine PO; +THP300CCR PO; +TIOT18CA INHALATION; -TR1B60 TOP; -[UNRECOGNIZED DRUG - CODE] TOP
[2019-04-08 11:33] VITALS: Ht 157.5 cm; Wt 89.0 kg
[2019-04-08] MEDS ORDERED: IPRATROPIUM (NEB) 0.5 MG/2.5 ML AMP HHN ONE (12:00)
[2019-04-08] MEDS ORDERED: predniSONE 20 MG TAB PO ONE (12:00)
[2019-04-08] MEDS ORDERED: ALBUTEROL 0.083% (NEB) 2.5 MG/3 ML AMP HHN STA (12:00)
[2019-04-08 14:11] VITALS: BP 105/63; PULSE 78; RESP 18
== END 2019-04-08 14:30 | disposition home or self-care (01) ==
LOC: E/R 11:31
DX: J44.1 Chronic obstructive pulmonary disease with (acute) exacerbation (principal); I10 Essential (primary) hypertension; I25.10 Atherosclerotic heart disease of native coronary artery without angina pectoris; Z79.82 Long term (current) use of aspirin; Z79.02 Long term (current) use of antithrombotics/antiplatelets; Z98.61 Coronary angioplasty status; Z87.891 Personal history of nicotine dependence
CPT/HCPCS: 71045; 93005; 94664; J7512; Z7502; Z7610